=== PATIENT | female | born 1950 | race Caucasian/White ===

== ENCOUNTER → 2016-04-10 | Outpatient (CLI) | payer BC ==
--- NOTE | 2016-04-10 21:59 | DI ---
THORACIC SPINE SERIES, 04/10/2016 2:07 PM: Clinical History: History of compression fracture of the vertebral column. Osteoporosis by bone continuous miner al density scan. Previous Exam: None at this facility. Comparison is made with a chest x-ray from 05/31/2006. 2 views are submitted. There is diffuse osteoporosis. There is a chronic compression fracture of T7 t hat is unchanged from the previous exam. No new fractures are identified. The patient has developed m ild dextroscoliosis of the upper thoracic spine. The pedicles are normal. No paravertebral widening i s present. A lateral view of the cervical spine is also submitted. There is reversal of the usual cervical lordo sis. The vertebral bodies are of normal height and size. Chronic severe disc space narrowing is prese nt at C4-5 through C6-7. There is anterior subluxation of C4 on C5 by approximately 2 mm. Readin. Chronic compression fracture of T7. No new compression fractures are identified. 2. Severe osteoporosis. 3. Interval development of mild dextroscoliosis of the upper thoracic spine. 4. Chronic severe disc space narrowing is present from C4-5 to C6-7 with anterior subluxation of C4 on C5 by 2 mm and reversal of the usual cervical lordosis.
--- NOTE | 2016-04-10 22:11 | DI ---
LUMBAR SPINE SERIES, 04/10/2016 2:07 PM: Clinical History: History of compression fracture of the vertebral column. Previous Exam: None at this facility. Upright AP and lateral views are submitted. The vertebral bodies are of normal height and size. Sever e disc space narrowing is present at L2-3 with moderate disc space narrowing from L3-4 through L5-S1. There is a grade 1 spondylolisthesis at L4-5. The pedicles are normal. Degenerative arthritic change s are present in the left L4-5 apophyseal joint. Both SI joints are normal. There is osteoporosis. Be nign cystic changes are present in the right femoral neck. Readin. Disc space narrowing is present from L2-3 through L5-S1 with a grade 1 spondylolisthesis at L4-5. Degenerative arthritic changes are present in the left L4-5 apophyseal joint. 2. Diffuse osteoporosis. 3. Compensatory levoscoliosis of the mid lumbar spine.
== END ==
LOC: RAD 12:35
PROVIDERS: ATTEND Internal Medicine
DX: M48.06 Spinal stenosis, lumbar region (principal); M43.16 Spondylolisthesis, lumbar region; M48.54XG Collapsed vertebra, not elsewhere classified, thoracic region, subsequent encounter for fracture with delayed healing
CPT/HCPCS: 72070; 72100

== ENCOUNTER → 2016-04-10 | Outpatient (CLI) | payer BC | LOC: LAB 12:35 | PROVIDERS: ATTEND Internal Medicine | DX: E03.9 Hypothyroidism, unspecified (principal); F31.9 Bipolar disorder, unspecified | CPT/HCPCS: 36415; 80178; 84439; 84481 ==

== ENCOUNTER → 2016-09-18 | Outpatient (CLI) | payer BC ==
[2016-09-18 08:35] LABS: BASOPHILS # (AUTO) 0.07 10*3/UL; BASOPHILS % (AUTO) 2.1 % (0-1); EOSINOPHILS # (AUTO) 0.23 10*3/UL; HEMATOCRIT 36.4 % (37.0-47.0); HEMOGLOBIN 11.3 g/dL (12.0-16.0); LYMPHOCYTES # (AUTO) 1.01 10*3/uL; MEAN CORPUSCULAR HEMOGLOBIN 29.4 PG (27-31); MEAN CORPUSCULAR VOLUME 94.5 FL (81-99); MEAN PLATELET VOLUME 8.8 FL (7.4-12.2); MONOCYTES # (AUTO) 0.38 10*3/UL (0.3-0.8); MONOCYTES % (AUTO) 11.6 % (5-15); NEUTROPHILS # (AUTO) 1.58 10*3/UL; NEUTROPHILS % (AUTO) 48.4 % (50-80); RED BLOOD COUNT 3.85 10^6/uL (4.20-5.40)
[2016-09-18 08:39] LABS: PLATELET MORPHOLOGY COMMENT NORMAL MORPHOLOGY (NORM); RBC MORPHOLOGY COMMENT NORMAL MORPHOLOGY (NORM); WBC MORPHOLOGY COMMENT NORMAL MORPHOLOGY (NORM)
[2016-09-18 08:47] LABS: BUN/CREATININE RATIO 10.9 (6-20); CALCIUM 9.4 mg/dL (8.7-10.7); CHOL/HDL RATIO 4.18 RATIO (0-4.0); LDL CHOLESTEROL,CALCULATED 125.2 mg/dL; SERUM ALBUMIN 4.1 g/dL (3.5-4.8)
--- NOTE | 2016-09-18 20:33 | DI ---
CT SCAN OF THE TEMPORAL BONES WITHOUT CONTRAST, 09/18/2016 11:04 AM : Clinical History: Deficit in the right ear. Previous Exam: None at this facility. High resolution axial low dose thin slices are obtained through the temporal bones without IV contras t. Sagittal and coronal reformatted images are generated. The left temporal bone and the middle and inner ear structures as well as the external auditory canal are all normal and are used as a control. On the right side, there is complete occlusion of the exte rnal auditory canal presumably by cerumen. There is no air visualized in the canal all the way to the tympanic membrane. There is no destructive change of the bony canal. There is no evidence of a margot steatoma or of fluid in the mastoid air cells to indicate mastoiditis. READIN. There is complete occlusion of the right external auditory canal with no evidence of air separati ng the tympanic membrane from the soft tissue material which presumably represents cerumen. No erosiv e changes of the bony external auditory canal are seen. The middle and inner ear structures and the m astoid air cells are normal. 2. The left ear is normal and is used as a control.
--- NOTE | 2016-09-18 20:42 | DI ---
MRI BRAIN SCAN WITHOUT AND WITH IV CONTRAST WITH EMPHASIS ON THE INTERNAL AUDITORY CANALS, 09/18/2016 10:11 AM: Clinical History: Right ear deafness. Previous Exam: None at this facility. Sequences: Sagittal non contrast T1 weighted slices; axial T2 weighted and FLAIR slices; axial T2 3D Steady State Free Precession thin slices. Pre and post contrast T1 weighted sagittal and axial thin s lices through the internal auditory canals. Diffusion weighted imaging with ADC mapping. Contrast Dose: 20 mL of ProHance (279.3 mg/mL) The 4th, 3rd, and lateral ventricles are of normal size, shape, position, and contour. There are no f ocal areas of abnormally increased or decreased signal intensity. Pre and post contrast thin slices t hrough the internal auditory canals show a normal appearance of the 7th and 8th cranial nerves. There is no cerebellopontine angle mass. No abnormal enhancing lesion is present. The cerebellar tonsils a re at the level of the foramen magnum. There is mild cerebral atrophy appropriate for the patient's a ge. Diffusion weighted imaging with ADC mapping is normal. There are no extracerebral mantels or shif t of the midline structures. The paranasal sinuses are normal. There is an intermediate signal intens ity confined to the right external auditory canal. There is no evidence of enhancement of this interm ediate signal intensity material and it terminates on the medial aspect corresponding to the tympanic membrane. There is no hypointense area within this material to suggest presence of gas or air. This would be consistent with a completely impacted external auditory canal by cerumen. Cerumen would be a butting the tympanic membrane and certainly could account for severe if not complete conductive heari ng loss. Readin. There is soft tissue material that does not show any enhancement and it completely fills the righ t external auditory canal from the orifice to the tympanic membrane. This can account for severe if n ot complete conductive hearing loss in the right ear. 2. There is no evidence of a cerebellopontine angle mass or evidence of a tumor involving the sevent h or eighth nerves on either side. 3. The pre-and postcontrast MRI brain scans are normal. There is age-appropriate cerebral atrophy. 4. Diffusion weighted imaging with ADC mapping is normal.
== END ==
LOC: MRI 08:11
PROVIDERS: ATTEND Internal Medicine
DX: H91.91 Unspecified hearing loss, right ear (principal); M06.9 Rheumatoid arthritis, unspecified; E03.9 Hypothyroidism, unspecified; F31.9 Bipolar disorder, unspecified; I65.8 Occlusion and stenosis of other precerebral arteries
CPT/HCPCS: 36415; 70480; 70543; 80053; 80061; 80178; 84443; 85025; 85652

== ENCOUNTER 2017-06-05 06:03 | Inpatient (IN) ==
[2017-06-04 12:28] LABS: BASOPHILS # (AUTO) 0.01 10*3/UL; BASOPHILS % (AUTO) 0.3 % (0-1); EOSINOPHILS # (AUTO) 0.23 10*3/UL; Hematocrit [HCT] 34.8 % (37.0-47.0); LYMPHOCYTES # (AUTO) 0.79 10*3/uL; MEAN CORPUSCULAR HEMOGLOBIN 28.8 PG (27-31); MEAN CORPUSCULAR HGB CONC 31.6 g/dL (33-37); MEAN CORPUSCULAR VOLUME 91.1 FL (81-99); MEAN PLATELET VOLUME 9.7 FL (7.4-12.2); MONOCYTES # (AUTO) 0.38 10*3/UL (0.3-0.8); MONOCYTES % (AUTO) 13.1 % (5-15); NEUTROPHILS # (AUTO) 1.48 10*3/UL; NEUTROPHILS % (AUTO) 51.3 % (50-80); RED BLOOD COUNT 3.82 10^6/uL (4.20-5.40)
[2017-06-04 12:29] LABS: PLATELET MORPHOLOGY COMMENT NORMAL MORPHOLOGY (NORM); RBC MORPHOLOGY COMMENT NORMAL MORPHOLOGY (NORM); WBC MORPHOLOGY COMMENT NORMAL MORPHOLOGY (NORM)
[~2017-06-05 06:03] MED LIST: BUPivacaine Liposome/PF (Exparel) Inj 20ml vial INFIL ONE; Clindamycin 900mg (Premix) 900 MG/50 ML BAG IV ONE; Ketorolac Inj 30 MG, Morphine Inj 5 MG, BUPivacaine Inj 0.25% PF 150 MG SPLASH ONE; LIDOCAINE W/ SODIUM BICARB 0.5 ML SYR ONE; LIDOCAINE W/ SODIUM BICARB 0.5 ML SYR SUBD ONE; Lactated Ringers 1,000 ML PRIMARY IV ONE; Lactated Ringers 1,000 ML PRIMARY IV SCH; Tranexamic Acid 1,000 MG in Sodium Chloride 0.9% 100 ML IV SCH
[2017-06-05] MEDS ORDERED: Sodium Chloride 0.9% 250 ML IV ONE (06:44)
[2017-06-05] MEDS ORDERED: Sodium Chloride 0.9% 0 ML ONE (06:45)
[2017-06-05] MEDS ORDERED: Sodium Chloride 0.9% vial 60 ML ONE (06:56)
[2017-06-05] MEDS ORDERED: BUPivacaine Liposome/PF (Exparel) Inj 20ml vial INFIL ONE (06:56)
[2017-06-05] MEDS ORDERED: BACITRACIN 50,000 UNIT VIAL IRRIG ONE (06:56)
[2017-06-05] MEDS ORDERED: PROPOFOL 10 MG/1 ML (200 MG/20 ML) VIAL IV ONE (07:00)
[2017-06-05] MEDS ORDERED: MIDAZOLAM 5 MG/1 ML ONE ×2 (07:00→07:27)
[2017-06-05] MEDS ORDERED: fentaNYL Inj 250 MCG/5 ML VIAL ONE ×2 (07:00→08:36)
[2017-06-05] MEDS ORDERED: ROCURONIUM 10 MG/1 ML - 5 ML VIAL IVP ONE (07:01)
[2017-06-05] MEDS ORDERED: Sodium Chloride 0.9% vial 10 ML ONE (07:02)
[2017-06-05] MEDS ORDERED: TRANEXAMIC ACID 1,000 MG / 10 ML VIAL ONE (07:08)
[2017-06-05] MEDS ORDERED: EPINEPHrine Inj (1:1,000) 1 mg/ml amp ONE (07:26)
[2017-06-05] MEDS ORDERED: BUPivacaine Inj 0.25% PF - 10ml vial ONE (07:27)
[2017-06-05] MEDS ORDERED: fentaNYL Inj 100 MCG/2 ML VIAL ONE (07:27)
[2017-06-05] MEDS ORDERED: DEXAMETHASONE PF 10 MG/1 ML VIAL ONE ×2 (07:27→08:30)
[2017-06-05] MEDS ORDERED: LIDOCAINE W/ SODIUM BICARB 0.5 ML SYR ONE (07:43)
[2017-06-05] MEDS ORDERED: LIDOCAINE MPF 2% - 5 ML (20 MG/1 ML) ONE (08:13)
[2017-06-05] MEDS ORDERED: ESMOLOL HCL 100 MG/10 ML VIAL ONE (08:14)
--- NOTE | 2017-06-05 09:19 | CRNA.PROGR ---
Anesthesia Time - - Start date: 06/05/17 End date: 06/05/17 - Procedure/Recovery Time Anesthesia : Time In: 08:07 Anesthesia : Time Out: 11:47 Anesthesia : Total Time: 220 - Block Time PreOp Block : Time In: 07:39 PreOp Block : Time Out: 07:55 PreOp Block : Total Time: 16 - Total Anesthesia Time Total Anesthesia Time (minutes): 236 - Other Weight: 99.337 kg Height: 5 ft 10 in Body Mass Index (BMI): 31.4 Physical Status: P3 (Gerd, Bipolar,) Anesthesia Type: General Anesthesia : ET
--- NOTE | 2017-06-05 09:21 | CRNA.PROCE ---
Nerve Block Documentation - - Safety Measures: Time Out Taken, Site Verified - - Type of Nerve Block Used: Right Adductor Canal Nerve Block Position for Nerve Block: Supine Moniters Used During Block: EKG, SPO2, NIBP Oxygen Supplemented: Yes Sedation Used - Enter Amount in Comment Field [ANES.SEDAT]: Midazolam (mg): Yes (3), Fentanyl (mcg): Yes (100) Skin Prep Used: ChloroPrep (Twice) Technique: Ultrasound Nerve Block Needle Used: EchoBright 100 mm Local Anesthetic - Enter Amt in Comment Field [ANES.LOCNB]: 0.25 % Bupivicaine with Epinephrine 1:200,000 (mL): Yes (30 ml in 1.5 ml increments) Additives to Nerve Blocks: Dexamethasone (mg): Yes (10) Anesthesia Time - Block Time PreOp Block : Time In: 07:39 PreOp Block : Time Out: 07:55 - Other Weight: 99.337 kg Height: 5 ft 10 in Body Mass Index (BMI): 31.4
[2017-06-05] MEDS ORDERED: PHENYLEPHRINE 10,000 MCG/1 ML VIAL ONE (10:24)
[2017-06-05] MEDS ORDERED: Lactated Ringers 1,000 ML PRIMARY IV ONE ×2 (10:28→10:35)
[2017-06-05] MEDS ORDERED: ONDANSETRON 4 MG/2 ML VIAL ONE (10:34)
[2017-06-05] MEDS ORDERED: ATROPINE SULFATE 0.4 MG/1 ML VIAL IVP PRN (10:47)
[2017-06-05] MEDS ORDERED: ONDANSETRON 4 MG/2 ML VIAL IVP PRN ×2 (10:47→12:39)
[2017-06-05] MEDS ORDERED: NORMAL SALINE 10 ML SYRINGE FLUSH IVP PRN ×2 (10:47→12:39)
[2017-06-05] MEDS ORDERED: fentaNYL Inj 100 MCG/2 ML VIAL IVP PRN (10:47)
[2017-06-05] MEDS ORDERED: LIDOCAINE W/ SODIUM BICARB 0.5 ML SYR SUBD PRN (10:47)
[2017-06-05] MEDS ORDERED: Ondansetron ODT Tab 8 MG TAB PO PRN (10:47)
[2017-06-05] MEDS ORDERED: HYDROmorphone 2 MG/1 ML IVP PRN (10:47)
[2017-06-05] MEDS ORDERED: Lactated Ringers 1,000 ML PRIMARY IV SCH (11:00)
[2017-06-05] MEDS ORDERED: HYDROmorphone 2 MG/1 ML ONE (12:26)
[2017-06-05] MEDS ORDERED: MAG HYDROX/AL HYDROX/SIMETH 30 ML SUSP PO PRN (12:39)
[2017-06-05] MEDS ORDERED: CALCIUM CARBONATE 500 MG (TUMS) CHEWABLE TABLET PO PRN (12:39)
[2017-06-05] MEDS ORDERED: Prochlorperazine Tab 10 MG TAB PO PRN (12:39)
[2017-06-05] MEDS ORDERED: BISACODYL 10 MG SUPPOSITORY RECTAL PRN (12:39)
[2017-06-05] MEDS ORDERED: ACETAMINOPHEN 325 MG TABLET PO PRN (12:39)
[2017-06-05] MEDS ORDERED: Non-Formulary Drug (Budesonide/Formoterol Fumarate [Symbicort 160-4.5 Mcg Inhaler] 2 INH) INH PRN (12:39)
--- NOTE | 2017-06-05 13:16 | CRNA.PROGR ---
Anesthesia Recovery Phase I - Post Anesthesia Evaluation Patient's Condition on Arrival in Phase I: Stable Patient's Condition on Arrival in Phase II: Stable Pain Level: 3 (No nausea, Pain at a reasonable level for her.)
--- NOTE | 2017-06-05 13:17 | CRNA.PROGR ---
Post Anesthesia Phase II - Post Anesthesia Phase II Patient Stable and Discharged To: Phase II Care Assumed By Surgeon: Cali Das MD Temperature: 98.6 F Pulse Rate: 98 Respiratory Rate: 17 Blood Pressure: 95/65 Pulse Ox: 93 Total Jose Francisco Score at Discharge: 9 Post Anesthesia Discharge Criteria Met: Yes
[2017-06-05] MEDS ORDERED: Acetaminophen 1000mg Inj 1,000 MG/100 ML VIAL IV PRN (13:34)
--- NOTE | 2017-06-05 13:34 | CONSULT ---
Consult Note - Consult Reason for Consult: PostOp Consulation : Ortho Requesting Physician: shayla Primary Care Provider: Beau Walker MD - History of Present Illness History of Present Illness: Is a very nice 67-year-old female who underwent right total knee replacement by Dr. Das hospitalist service was consult did for pain management. 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 Das also called the hematology in [place] yesterday and recommended to go ahead with the surgery of course there is a higher chance of infection, hypothyroidism Surgical History: Bone marrow many years ago as per Dr. Boyle her Tobacco Use: Never Smoker In the Past 12 Months, Have Used or Abuse Any of the Following Substance: None Review of Systems - Review of Systems All Systems: Reviewed & No Additional Complaints Except as Stated - Respiratory Respiratory: DENIES: Negative System Review, Cough, Sputum, Dyspnea At Rest, Dyspnea with Exertion, Pleuritic Pain, Hemoptysis, Wheezing, Other, See HPI - Cardiovascular Cardiovascular: DENIES: Negative System Review, Chest Pain, Edema, Syncope, Palpitations, Orthopnea, Paroxysmal Nocturnal Dyspnea, Other, See HPI - Gastrointestinal Gastrointestinal / Abdominal: DENIES: Negative System Review, Nausea, Vomiting, Diarrhea, Constipation, Abdominal Pain, Bloody Stool, Poor Appetite, Heartburn, Regurgitation, Bloating, Lactose Intolerance, Melena, Bright Red Blood per Rectum, Other, See HPI Medication / Allergies Home Medications: Home Medications 3 Medication Instructions Recorded Confirmed Type lurasidone 60 mg tablet 60 mg PO QDAY 01/22/17 06/05/17 History budesonide-formoterol HFA 160 2 inh INH Q12H PRN g 05/07/17 06/05/17 History mcg-4.5 mcg/actuation aerosol inhaler buprenorphine 15 mcg/hour weekly 1 patch TRANSDERM QWEEK 05/07/17 06/05/17 History transdermal patch divalproex ER 250 mg 250 mg PO BID tab 05/07/17 06/05/17 History tablet,extended release 24 hr duloxetine 60 mg capsule,delayed 60 mg PO QDAY cap 05/07/17 06/05/17 History release liothyronine 50 mcg tablet 50 mcg PO ONCE #90 tab 05/07/17 06/05/17 Rx lithium carbonate 300 mg capsule 600 mg PO QDAY cap 05/07/17 06/05/17 History lorazepam 0.5 mg tablet 0.5 mg PO TID PRN tab 05/07/17 06/05/17 History losartan 50 mg tablet 50 mg PO QDAY 05/07/17 06/05/17 History pantoprazole 40 mg tablet,delayed 40 mg PO BID #180 tab 05/07/17 06/05/17 Rx release zolpidem 10 mg tablet 10 mg PO QHS 05/07/17 06/05/17 History celecoxib 100 mg capsule 100 mg PO BID #180 cap 05/16/17 06/05/17 Rx apremilast 30 mg tablet 30 mg PO QHS tab 06/04/17 06/05/17 History Allergies/Adverse Reactions: Allergies 3 Allergy/AdvReac Type Severity Reaction Status Date / Time Penicillins Allergy Severe Anaphylaxis Verified 06/05/17 06:49 Sulfa (Sulfonamide Allergy Severe HIVES Verified 06/05/17 06:49 Antibiotics) bee stings Allergy SWELLING Uncoded 06/05/17 06:49 Exam - Vitals Vital Signs: Vital Signs Temperature 98.6 F Pulse Rate 98 Respiratory Rate 17 Blood Pressure 95/65 Pulse Ox 93 Oxygen Flow Rate 4L NC Height 5 ft 10 in Weight 219 lb - General General Appearance: No Acute Distress, Cooperative - Respiratory Respiratory Exam: POSITIVE: Clear to Auscultation - Bilaterally, Breathing Non Labored, Normal To Percussion, Normal to Percussion and Palpation - Cardiovascular Cardiovascular Exam: POSITIVE: RRR, No Murmur, No Clicks, No Gallops, No Rubs, PMI Non-Displaced - GI/Abdominal GI/Abdominal Exam: POSITIVE: Normal Bowel Sounds, Non Tender, Non Distended, Soft, No Masses, No Hepatomegaly, No Splenomegaly, No Organomegaly - Extremities Extremities Exam: POSITIVE: No Clubbing Present, No Edema Present - Neurological Neurological Exam: POSITIVE: Alert, No Facial Droop Results - Labs CBC and BMP: 06/04/17 10:02 Assessment and Plan - Patient Problems (1) Status post total knee replacement, right Current Visit: Yes Status: Acute Comment: Defer her PT OT orders anticoagulation to Dr. Das Code(s): Z96.651 - Presence of right artificial knee joint (2) Arthritis of right knee Current Visit: No Status: Acute Code(s): M17.11 - Unilateral primary osteoarthritis, right knee (3) Pain Current Visit: Yes Status: Acute Comment: Patient is on buprenorphine patch her psychiatrist has held this until after the surgery we will try IV tall for pain if this does not work we are still going to be able to use narcotics at the moment I discussed this with her Dr. Boyle who talked to her psychiatrist Code(s): R52 - Pain, unspecified
--- NOTE | 2017-06-05 13:42 | ORTHO.OP ---
- - -: See Dictated Operative Report Procedure Codes - Lower Extremity/Knee Procedures Primary Lower Extremity Procedure Code: 74413 : TKA (Nicolette Walker assisted)
--- NOTE | 2017-06-05 13:43 | DI ---
RIGHT KNEE, 06/05/2017 7:54 AM: Clinical History: Status post total knee replacement. Osteoarthritis. Previous Exam: 01/22/2017. AP and lateral views are submitted. The patient is status post total right knee replacement. The pros thetic joint articulates normally. Reading: Status post total right knee replacement. The prosthetic joint articulates normally.
[2017-06-05] MEDS: Lactated Ringers 1,000 ML PRIMARY IV SCH (13:53)
[2017-06-05] MEDS: HYDROmorphone 2 MG/1 ML IVP PRN (14:16)
[2017-06-05] MEDS: Clindamycin 900mg (Premix) 900 MG/50 ML BAG IV SCH ×2 (14:25→21:03)
[2017-06-05] MEDS ORDERED: PANTOPRAZOLE 40 MG TABLET PO SCH (16:30)
--- NOTE | 2017-06-05 17:13 | ORTHO.PROG ---
Last Taken Vital Signs: Vital Signs - Last Taken Temperature 98.3 F 06/05/17 16:34 Pulse Rate 85 06/05/17 16:34 Respiratory Rate 16 06/05/17 16:34 Blood Pressure 100/57 06/05/17 16:34 Pulse Ox 93 06/05/17 16:34 Subjective: Patient's sleeping about after awakening she notes she she's having some pain in the right knee she notes it's a fairly significant. Objective: Examination shows she has good motion of her toes her dressing is in place motor and sensory exam is nonfocal Intake and Output - 8hrs 06/04/17 06/05/17 06/05/17 06/05/17 21:59 05:59 13:59 21:59 Intake: IV 2600 / 2600 200 / 200 Intake Oral Amount 300 / 300 Output: Output, Urinary Catheter Amount 35 / 35 200 / 200 Output, Urine Amount 150 / 150 Output, Post Indwelling 10 / 10 Catheter Insertion Output, Estimated Blood Loss 200 / 200 Amount Other: Number of Voids 1 Weight 99.337 kg Vital Signs (24 hrs) Temp Pulse Pulse Resp BP BP Pulse Ox 06/05/17 16:34 98.3 F 85 16 100/57 93 06/05/17 15:43 96 06/05/17 14:30 98.1 F 93 16 122/62 95 06/05/17 14:00 97.3 F 103 H 17 116/65 95 06/05/17 13:30 97.4 F 88 16 113/59 96 06/05/17 13:17 98.6 F 98 17 95/65 93 06/05/17 13:15 98 F 88 16 106/64 96 06/05/17 13:00 98 F 93 16 114/70 96 06/05/17 12:40 98.1 F 99 93 16 114/70 122/62 95 06/05/17 12:35 98 15 111/68 94 06/05/17 12:30 100 14 109/65 93 06/05/17 12:25 96 15 115/65 93 06/05/17 12:20 98 17 95/65 93 06/05/17 12:15 96 16 115/60 92 06/05/17 12:10 96 15 109/62 93 06/05/17 12:05 96 15 104/67 93 06/05/17 12:02 99 23 93 06/05/17 12:00 97 15 99/61 95 06/05/17 11:58 85 14 94 06/05/17 11:56 86 14 99/61 94 06/05/17 11:50 85 14 97/57 93 06/05/17 11:45 90 13 108/56 92 06/05/17 11:40 98.6 F 100 13 116/51 92 06/05/17 08:18 98.6 F 85 18 134/78 92 Assessment: Right total knee replacement doing well Plan: Patient does stated with therapy she seemed to do well with this by nurses history. We will have her proceed with DVT prophylaxis starting tomorrow also with pneumatic sequentials begin physical therapy and occupational therapy. Pain control. Ice and elevation
[2017-06-05] MEDS: oxyCODONE/APAP 7.5/325 Tab 1 TAB TAB PO PRN (20:33)
[2017-06-05] MEDS ORDERED: DIVALPROEX SODIUM 250 MG PO SCH (21:00)
[2017-06-05] MEDS: DOCUSATE 100 MG CAPSULE PO SCH (21:02)
[2017-06-05] MEDS: PANTOPRAZOLE 40 MG TABLET PO SCH (21:03)
[2017-06-05] MEDS: ZOLPIDEM 10 MG TABLET PO SCH (21:03)
[2017-06-05] MEDS ORDERED: LITHIUM CARBONATE 300 MG CAPSULE PO ONE (21:59)
[2017-06-06] MEDS: Lactated Ringers 1,000 ML PRIMARY IV SCH ×2 (00:39→10:46)
[2017-06-06] MEDS: Clindamycin 900mg (Premix) 900 MG/50 ML BAG IV SCH (02:15)
[2017-06-06] MEDS: HYDROmorphone 2 MG/1 ML IVP PRN ×4 (04:27→21:05)
[2017-06-06] MEDS: LIOTHYRONINE SODIUM 25 MCG PO SCH (04:55)
[2017-06-06 05:12] LABS: Hematocrit [HCT] 24.8 % (37.0-47.0); Hemoglobin [HGB] 7.5 g/dL (12.0-16.0); MEAN CORPUSCULAR HEMOGLOBIN 28.1 PG (27-31); MEAN CORPUSCULAR HGB CONC 30.2 g/dL (33-37); MEAN CORPUSCULAR VOLUME 92.9 FL (81-99); MEAN PLATELET VOLUME 9.7 FL (7.4-12.2); RED BLOOD COUNT 2.67 10^6/uL (4.20-5.40)
[2017-06-06 05:20] LABS: BLOOD UREA NITROGEN 12 mg/dL (7-22); BUN/CREATININE RATIO 13.33 (6-20)
[2017-06-06] MEDS ORDERED: LIOTHYRONINE SODIUM 50 MCG PO SCH (05:30)
[2017-06-06] MEDS ORDERED: LIOTHYRONINE SODIUM 25 MCG PO SCH (05:30)
[2017-06-06] MEDS: oxyCODONE/APAP 7.5/325 Tab 1 TAB TAB PO PRN ×3 (08:30→20:00)
[2017-06-06] MEDS: LOSARTAN 50 MG TABLET PO SCH (08:31)
[2017-06-06] MEDS: DOCUSATE 100 MG CAPSULE PO SCH ×2 (08:31→20:00)
[2017-06-06] MEDS: DULOXETINE 60 MG CAPSULE PO SCH (08:31)
[2017-06-06] MEDS: LITHIUM CARBONATE 300 MG CAPSULE PO SCH (08:31)
[2017-06-06] MEDS: ENOXAPARIN SODIUM 30 MG/0.3 ML SYRINGE SUBCUT SCH ×2 (08:31→19:59)
[2017-06-06] MEDS: PANTOPRAZOLE 40 MG TABLET PO SCH ×2 (08:31→20:00)
--- NOTE | 2017-06-06 10:34 | CRNA.PROGR ---
Anesthesia Note - Progress Notes Anesthesia Progress Note: Sitting up in bed visiting with nurse. Discussed her anesthetic course and she has no questions or concerns regarding her anesthetic care. Laboratory Results 06/06/17 06/06/17 Range/Units 04:05 04:05 WBC 6.32 (4.8-10.8) 10^3/uL RBC 2.67 L (4.20-5.40) 10^6/uL Hgb 7.5 L (12.0-16.0) g/dL Hct 24.8 L (37.0-47.0) % MCV 92.9 (81-99) FL MCH 28.1 (27-31) PG MCHC 30.2 L (33-37) g/dL RDW Std Deviation 43.8 (39-50) fL RDW Coeff of Tommie 13.5 (11.5-14.5) % Plt Count 165 (140-350) 10*3/uL MPV 9.7 (7.4-12.2) FL Sodium 135 D (135-145) meq/L Potassium 4.7 (3.8-5.2) meq/L Chloride 104 (98-112) meq/L Carbon Dioxide 21 L (23-33) meq/L Anion Gap 10 (5-20) BUN 12 (7-22) mg/dL Creatinine 0.9 (0.50-1.20) mg/dL Estimated GFR > 60 (>60 ml/min/1.73m(2)) BUN/Creatinine Ratio 13.33 (6-20) Glucose 137 H (78-110) mg/dL Calculated Osmolality 281.0 (267-292) mOsm/kg Calcium 8.9 (8.7-10.7) mg/dL Vital Signs (24 hrs) Temp Pulse Pulse Resp BP BP Pulse Ox 06/06/17 08:28 98.7 F 74 16 131/75 96 06/06/17 07:00 16 06/06/17 04:57 94 06/06/17 04:25 98.8 F 85 20 97 06/06/17 00:22 99.3 F 98 20 88/54 93 06/05/17 20:48 98.4 F 95 20 120/70 95 06/05/17 19:00 95 06/05/17 16:34 98.3 F 85 16 100/57 93 03/27/18 15:43 96 03/27/18 14:30 98.1 F 93 16 122/62 95 03/27/18 14:00 97.3 F 103 H 17 116/65 95 03/27/18 13:30 97.4 F 88 16 113/59 96 03/27/18 13:17 98.6 F 98 17 95/65 93 03/27/18 13:15 98 F 88 16 106/64 96 03/27/18 13:00 98 F 93 16 114/70 96 03/27/18 12:40 98.1 F 99 93 16 114/70 122/62 95 03/27/18 12:35 98 15 111/68 94 03/27/18 12:30 100 14 109/65 93 03/27/18 12:25 96 15 115/65 93 03/27/18 12:20 98 17 95/65 93 03/27/18 12:15 96 16 115/60 92 03/27/18 12:10 96 15 109/62 93 03/27/18 12:05 96 15 104/67 93 03/27/18 12:02 99 23 93 03/27/18 12:00 97 15 99/61 95 03/27/18 11:58 85 14 94 03/27/18 11:56 86 14 99/61 94 03/27/18 11:50 85 14 97/57 93 03/27/18 11:45 90 13 108/56 92 03/27/18 11:40 98.6 F 100 13 116/51 92
--- NOTE | 2017-06-06 11:00 | PTI REPORT ---
Thank you for the referral of Claribel Boyle. She was seen on 06/05/17 for an inpatient evaluation status post right total knee arthroplasty. SUBJECTIVE: The patient is a 67-year-old female who earlier today underwent a right total knee arthroplasty with an adductor block. The patient does live in a condo with her . There are stairs to enter the home, but once she is in the home, she is able to remain on one level. She does have a walk-in shower. She does not have any assistive devices in the home. PAST MEDICAL HISTORY: Past medical history can be found in the patient's medical record. OBJECTIVE FINDINGS: General observations: The patient was very groggy but she was able to answer questions appropriately and was oriented to time, person, and place. Pain: At this time the patient reports no pain in the right knee. Bed mobility: The patient was able to come to sitting position with use of the bed rail independently. She was able to return to supine position from standing to sitting and then supine independently. Balance: Sitting balance is good. Standing balance is fair. Transfers: The patient was able to come to standing position with use of the bed railing and walker for support. Ambulation: The patient does bear partial weight on the right lower extremity but was unable to take a step. ASSESSMENT: The patient is very groggy. Her prognosis is good for return to pre functional position. Short-Term Goals: To be met by discharge from inpatient: Patient will demonstrate independent transfers in and out of bed, on and off the toilet, and in and out of a chair. Patient will ambulate 100 feet with walker. Patient will demonstrate range of motion in the right knee of 0 to 90 degrees. Patient will demonstrate strength in the right lower extremity of 3/5. Long-Term Goals: To be met following discharge from inpatient: Patient will return home and will begin either outpatient or home health therapy , pending her progress in her hospital stay. TREATMENT PLAN: Patient will be seen B.I.D during the week and one time per day over the weekend as an inpatient for lower extremity strengthening, range of motion exercises, transfer training, and gait training with a walker. Plan of care was reviewed with the patient and agreed upon. INITIAL TREATMENT: Treatment today consisted of the initial evaluation activities. Following the evaluation the patient was positioned in bed with right lower extremity elevated with the knee and ankle level and ice pack to the right knee. Note done by: Joan Banks, PT [facility]
--- NOTE | 2017-06-06 15:23 | PDOC(PROG) ---
Date and Time of Service: 06/06/2017 3:24 PM Interval History: Subjective Patient continued to complain from pain in her right knee but the pain medication is helping. She has a history of hypertension, hypothyroidism, bipolar disorder and she is on medication for it. She also has history of chronic pain and she is on Butrans patch, this was a stopped before the surgery. She is on IV and oral pain medications now. She said she take her Depakote as needed last time she took it was 5 days ago. Objective : Data - Labs CBC and BMP: 06/06/17 04:05 06/06/17 04:05 Objective : Exam - General General Appearance: No Acute Distress, Cooperative, Obese - Head Head Exam: Normal Inspection, Atraumatic - Eye Eye Exam: Normal Appearance - ENT ENT Exam: Normal Exam - Neck Neck Exam: Normal Inspection - Respiratory Respiratory Exam: Clear to Auscultation - Bilaterally - Cardiovascular Cardiovascular Exam: RRR - GI/Abdominal GI/Abdominal Exam: Normal Bowel Sounds, Non Tender, Non Distended, Soft, No Organomegaly - Rectal Rectal Exam: Deferred - External Exam: Deferred - Extremities Additional Extremities Exam Details: Dressing applied to the right knee. There is no significant edema. - Back Back Exam: Normal Inspection - Neurological Neurological Exam: Alert, Oriented x 3, CN II-XII Intact, Speech Intact / Clear , Moves All Extremities Equally - Psychiatric Psychiatric Exam: Normal Affect Assessment and Plan - Patient Problems (1) Arthritis of right knee Current Visit: No Status: Acute Comment: She is status post surgery, PT and OT consulted for her. Pain medication written continue. For DVT prophylaxis she is started on Lovenox. Code(s): M17.11 - Unilateral primary osteoarthritis, right knee (2) Status post total knee replacement, right Current Visit: Yes Status: Acute Comment: Same as above continue PT and OT. Same pain medications. Code(s): Z96.651 - Presence of right artificial knee joint (3) Hypothyroidism Current Visit: Yes Status: Acute Comment: Same med Code(s): E03.9 - Hypothyroidism, unspecified (4) Hypertension Current Visit: Yes Status: Acute Comment: Same medications Code(s): I10 - Essential (primary) hypertension (5) Postoperative anemia due to acute blood loss Current Visit: Yes Status: Acute Comment: She is anemic, with repeat her count tomorrow. She is asymptomatic is no chest pain, no shortness of breath no dizziness. If the level is still low tomorrow consider giving blood transfusions. Code(s): D62 - Acute posthemorrhagic anemia (6) Bipolar disorder Current Visit: Yes Status: Acute Comment: Continue previous medications including Latuda, lithium and Cymbalta. Code(s): F31.9 - Bipolar disorder, unspecified
--- NOTE | 2017-06-06 17:20 | PT.PROG ---
Progress Note Progress Note: Patient stated she was tired after working with OT and didn't feel up to more therapy however agreed to do therapy this afternoon.
--- NOTE | 2017-06-06 17:25 | PT.PROG ---
Progress Note Progress Note: S. Patient stated that her knee is sore and she would like to walk to see if it will feel better. O. Patient transferred from sitting to standing then ambulated 30 feet to the armstrong and back to bed where she transferred into bed and was left with call light and alarm. A. Patient tolerated ambulation well, she required min assist with ambulation and sit to stand transfer. she required min assist with sitting to supine transfer as well, she would continue to benefit from skilled therapy to increase strength and mobility at this time. P. Continue POC.
--- NOTE | 2017-06-06 18:10 | ORTHO.PROG ---
Last Taken Vital Signs: Vital Signs - Last Taken Temperature 98.1 F 06/06/17 17:00 Pulse Rate 90 06/06/17 17:00 Respiratory Rate 18 06/06/17 17:00 Blood Pressure 143/75 06/06/17 17:00 Pulse Ox 93 06/06/17 17:00 Subjective: Patient with a fair amount of pain but overall doing well Objective: Patient with good motion of the foot and ankle. She has normal sensory exam. Dressing is applied place and dry. Laboratory Results 06/06/17 06/06/17 Range/Units 04:05 04:05 WBC 6.32 (4.8-10.8) 10^3/uL RBC 2.67 L (4.20-5.40) 10^6/uL Hgb 7.5 L (12.0-16.0) g/dL Hct 24.8 L (37.0-47.0) % MCV 92.9 (81-99) FL MCH 28.1 (27-31) PG MCHC 30.2 L (33-37) g/dL RDW Std Deviation 43.8 (39-50) fL RDW Coeff of Tommie 13.5 (11.5-14.5) % Plt Count 165 (140-350) 10*3/uL MPV 9.7 (7.4-12.2) FL Sodium 135 D (135-145) meq/L Potassium 4.7 (3.8-5.2) meq/L Chloride 104 (98-112) meq/L Carbon Dioxide 21 L (23-33) meq/L Anion Gap 10 (5-20) BUN 12 (7-22) mg/dL Creatinine 0.9 (0.50-1.20) mg/dL Estimated GFR > 60 (>60 ml/min/1.73m(2)) BUN/Creatinine Ratio 13.33 (6-20) Glucose 137 H (78-110) mg/dL Calculated Osmolality 281.0 (267-292) mOsm/kg Calcium 8.9 (8.7-10.7) mg/dL Vital Signs (24 hrs) Temp Pulse Resp BP BP Pulse Ox 06/06/17 17:00 98.1 F 90 18 143/75 93 06/06/17 11:28 97.4 F 84 18 125/69 94 03/28/18 08:28 98.7 F 74 16 131/75 96 06/06/17 07:00 16 06/06/17 04:57 94 06/06/17 04:25 98.8 F 85 20 97 06/06/17 00:22 99.3 F 98 20 88/54 93 06/05/17 20:48 98.4 F 95 20 120/70 95 06/05/17 19:00 95 Assessment: Right total knee replacement doing well Anemia postoperative exacerbation from regular anemia Cyclical neutropenia stable Plan: Patient will continue with pain control Physical therapy DVT prophylaxis with Lovenox and pneumatic sequential devices.
[2017-06-06] MEDS: ZOLPIDEM 10 MG TABLET PO SCH (20:00)
[2017-06-06] MEDS: DIVALPROEX SODIUM 250 MG TABLET PO SCH (20:30)
[2017-06-06] MEDS: LORazepam 1 MG TABLET PO PRN (21:06)
[2017-06-06] MEDS: diphenhydrAMINE 25 MG CAPSULE PO PRN (21:48)
[2017-06-07] MEDS: oxyCODONE/APAP 7.5/325 Tab 1 TAB TAB PO PRN ×6 (00:09→17:03)
[2017-06-07] MEDS: HYDROmorphone 2 MG/1 ML IVP PRN ×5 (00:21→23:11)
[2017-06-07] MEDS: LIOTHYRONINE SODIUM 25 MCG PO SCH (04:36)
[2017-06-07 05:24] LABS: Hematocrit [HCT] 27.2 % (37.0-47.0); Hemoglobin [HGB] 8.1 g/dL (12.0-16.0); MEAN CORPUSCULAR HEMOGLOBIN 27.6 PG (27-31); MEAN CORPUSCULAR HGB CONC 29.8 g/dL (33-37); MEAN CORPUSCULAR VOLUME 92.8 FL (81-99); MEAN PLATELET VOLUME 9.7 FL (7.4-12.2); RED BLOOD COUNT 2.93 10^6/uL (4.20-5.40)
[2017-06-07 05:28] LABS: BLOOD UREA NITROGEN 9 mg/dL (7-22); BUN/CREATININE RATIO 12.85 (6-20)
--- NOTE | 2017-06-07 07:48 | ORTHO.PROG ---
Last Taken Vital Signs: Vital Signs - Last Taken Temperature 98 F 06/07/17 07:19 Pulse Rate 94 06/07/17 07:19 Respiratory Rate 20 06/07/17 07:19 Blood Pressure 132/73 06/07/17 07:19 Pulse Ox 93 06/07/17 07:19 Subjective: Patient doing well this morning though her pain control is marginal. She is taking 2 Percocets about every 4 hours and is requiring medication IV in between near the end of the Percocet. Objective: Motor and sensory exam lower extremity is good her dressing is in place no active issues and no bleeding. Popliteal or thigh pain. Laboratory Results 06/07/17 06/07/17 Range/Units 04:41 04:41 WBC 5.08 (4.8-10.8) 10^3/uL RBC 2.93 L (4.20-5.40) 10^6/uL Hgb 8.1 L (12.0-16.0) g/dL Hct 27.2 L (37.0-47.0) % MCV 92.8 (81-99) FL MCH 27.6 (27-31) PG MCHC 29.8 L (33-37) g/dL RDW Std Deviation 44.3 (39-50) fL RDW Coeff of Tommie 13.5 (11.5-14.5) % Plt Count 173 (140-350) 10*3/uL MPV 9.7 (7.4-12.2) FL Sodium 137 (135-145) meq/L Potassium 4.4 (3.8-5.2) meq/L Chloride 104 (98-112) meq/L Carbon Dioxide 24 (23-33) meq/L Anion Gap 9 (5-20) BUN 9 (7-22) mg/dL Creatinine 0.7 (0.50-1.20) mg/dL Estimated GFR > 60 (>60 ml/min/1.73m(2)) BUN/Creatinine Ratio 12.85 (6-20) Glucose 108 (78-110) mg/dL Calculated Osmolality 283.0 (267-292) mOsm/kg Calcium 9.1 (8.7-10.7) mg/dL Vital Signs (24 hrs) Temp Pulse Resp BP BP Pulse Ox 06/07/17 07:19 98 F 94 20 132/73 93 06/07/17 05:00 99.1 F 109 H 20 152/84 93 06/07/17 04:00 96 06/07/17 00:37 98.9 F 98 20 166/69 96 06/06/17 20:46 98.8 F 92 20 131/60 97 06/06/17 17:00 98.1 F 90 18 143/75 93 06/06/17 11:28 97.4 F 84 18 125/69 94 06/06/17 08:28 98.7 F 74 16 131/75 96 Assessment: Right total knee replacement Postoperative anemia 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 We'll continue to monitor
[2017-06-07] MEDS: ENOXAPARIN SODIUM 30 MG/0.3 ML SYRINGE SUBCUT SCH ×2 (08:15→20:32)
[2017-06-07] MEDS: DIVALPROEX SODIUM 250 MG TABLET PO SCH ×2 (08:16→20:29)
[2017-06-07] MEDS: LOSARTAN 50 MG TABLET PO SCH (08:16)
[2017-06-07] MEDS: DOCUSATE 100 MG CAPSULE PO SCH ×2 (08:16→20:29)
[2017-06-07] MEDS: PANTOPRAZOLE 40 MG TABLET PO SCH ×2 (08:16→20:29)
[2017-06-07] MEDS: LITHIUM CARBONATE 300 MG CAPSULE PO SCH (08:16)
[2017-06-07] MEDS: DULOXETINE 60 MG CAPSULE PO SCH (08:16)
--- NOTE | 2017-06-07 09:36 | PDOC(PROG) ---
Date and Time of Service: 06/07/2017 9:36 AM Interval History: Subjective Patient continued to complain from pain in her right knee. Although she rates her pain as 9 out of 10 she does not appear to be at that level of pain. She said though her pain seems to be better than yesterday. Objective : Data - Labs CBC and BMP: 06/07/17 04:41 06/07/17 04:41 Objective : Exam - General General Appearance: No Acute Distress, Cooperative - Head Head Exam: Normal Inspection - Eye Eye Exam: Normal Appearance - ENT ENT Exam: Normal Exam - Neck Neck Exam: Normal Inspection - Respiratory Respiratory Exam: Clear to Auscultation - Bilaterally - Cardiovascular Cardiovascular Exam: RRR - GI/Abdominal GI/Abdominal Exam: Normal Bowel Sounds, Non Tender, Non Distended, Soft, No Organomegaly - Rectal Rectal Exam: Deferred - External Exam: Deferred - Extremities Additional Extremities Exam Details: Dressing applied to the right knee. - Neurological Neurological Exam: Alert, Oriented x 3, CN II-XII Intact, Speech Intact / Clear - Psychiatric Psychiatric Exam: Flat Affect - Integumentary Integumentary Exam: Normal Color Assessment and Plan - Patient Problems (1) Status post total knee replacement, right Current Visit: Yes Status: Acute Comment: Continue PT and OT. I think we'll continue current pain medications. Code(s): Z96.651 - Presence of right artificial knee joint (2) Hypothyroidism Current Visit: Yes Status: Acute Comment: Same med Code(s): E03.9 - Hypothyroidism, unspecified (3) Hypertension Current Visit: Yes Status: Acute Comment: Same med Code(s): I10 - Essential (primary) hypertension (4) Postoperative anemia due to acute blood loss Current Visit: Yes Status: Acute Comment: Hemoglobin is better than what it was yesterday. I think will watch it to another day put her on multivitamins and iron. Code(s): D62 - Acute posthemorrhagic anemia (5) Bipolar disorder Current Visit: Yes Status: Acute Comment: Same medications Code(s): F31.9 - Bipolar disorder, unspecified (6) DVT prophylaxis Current Visit: Yes Status: Acute Comment: She is on Lovenox
[2017-06-07] MEDS: Ondansetron ODT Tab 8 MG TAB PO PRN (11:50)
--- NOTE | 2017-06-07 12:11 | OT.PROG ---
Progress Note Progress Note: S: Pt. reports that she had a rough night due to pain and she is continuing to have pain. She reports that she would like to try to get dressed this morning. O: Pt. was seen for skilled occupational therapy session with a focus on ADL tasks. Pt. was supine in bed upon arrival. She moved from supine to sit at EOB with min. A. Pt. completed UE dressing with set up assist and was instructed in LE dressing with the use of a front office director. Pt. required mod. A to thread pants over her feet; however she was able to pull up pants independently. Pt. required min. A to stand from a raised EOB. Following OT session, pt. transitioned to physical therapy. A: Pt. required extra time today to complete all ADL tasks and mod. verbal cueing. Pt. may benefit from continued practice using the front office director and sock aide to complete LE dressing and therapeutic exercise to increase UE strength. P: Continue POC. MARY Bassett
--- NOTE | 2017-06-07 15:33 | OTI REPORT ---
Thank you for the referral of Claribel Boyle. She was seen on 06/06/17 for an occupational therapy inpatient evaluation status post right total knee arthroplasty. SUBJECTIVE: The patient is a 67-year-old female who is being seen secondary to having a right total knee arthroplasty. The patient lives in [place] with her . The patient reports that prior to admission she did a lot of Pilates. She was active and independent with all of her activities of daily living. The patient does have a higher toilet with grab bars as well as a shower with a shower seat. The patient does not have any adaptive devices for dressing self. PAST MEDICAL HISTORY: Past medical history can be found in the patient's medical record. OBJECTIVE FINDINGS: General observations: The patient was in bed upon the therapist's arrival. Pain: The patient's pain level was a 7/10 on the verbal analog scale (0=no pain , 10=worst pain) when the therapist arrived and ended up being 10/10 at the end of therapy. The patient's nurse was notified of her pain level prior to the session. She was almost due some pain meds. Bed mobility: The patient was able to come from supine to sit. Activities of daily living: While sitting edge of bed the patient was able to don and doff her sock independently. The patient was issued a orange picker machine operator in case she needs to reach items off of the floor. The patient was also issued a bath sponge for home independence. Range of motion: Upper extremity range of motion is within normal limits. Strength: Strength in shoulder flexion was 4/5, abduction was 3+/5, elbow flexion/extension was 4/5, and wrist flexion/extension was 4/5. Transfers: The patient completed sit to stand transfer with max assist. Ambulation: The patient ambulated to the chair with min to mod assist for balance. Her body did become a little shaky during this time secondary to the pain levels. ASSESSMENT: Problem List: Decreased ability to perform functional transfers Decreased upper extremity strength Decreased ability to perform ADLs while standing Decreased balance Short-Term Goals: To be met by discharge from inpatient: Patient will be able to [] Patient will be able to [] Patient will be able to [] Patient will be able to [] Long-Term Goals: To be met following discharge from inpatient: Patient will be able to [] Patient will be able to [] TREATMENT PLAN: Patient will be seen B.I.D during the week and one time per day over the weekend as an inpatient to address the above goals and objectives. INITIAL TREATMENT: Treatment today consisted of the initial evaluation followed by the patient transferring from supine to sit with max assist. The patient transferred from sit to stand with mod assist. The patient participated in ADLs and was instructed in adaptive equipment. The patient was left in chair with chair alarm on and call light within reach. Nurse was in the room when the therapist left for pain management. SHERON
--- NOTE | 2017-06-07 16:31 | OT.PROG ---
Progress Note Progress Note: S: pt refused to participate in any OT today, stating she was to tired.
--- NOTE | 2017-06-07 17:27 | PT.PROG ---
Progress Note Progress Note: S. Patient stated that she is very sore this morning. O. Patient was wheeled to the therapy gym where she had heat to her knee then performed heel slides, quad sets, ankle pumps, short arc quads all x 10. Patient performed sit to stands x 5 then ambulated 10 feet to the wheelchair and was returned back to her room where she was left in her bed with nursing. A. patient tolerated exercise fair, she is struggling with extension. she would continue to benefit from skilled therapy to increase strength, endurance and mobility. P. Continue POC.
[2017-06-07] MEDS: oxyCODONE/APAP 10/325 Tab 1 EACH TAB PO PRN ×2 (20:29→23:58)
[2017-06-07] MEDS: ZOLPIDEM 10 MG TABLET PO SCH (20:29)
[2017-06-07] MEDS: FERROUS SULFATE 325 MG TABLET PO SCH (20:29)
[2017-06-07] MEDS: LORazepam 1 MG TABLET PO PRN (23:10)
[2017-06-08] MEDS: HYDROmorphone 2 MG/1 ML IVP PRN (04:07)
[2017-06-08] MEDS: oxyCODONE/APAP 10/325 Tab 1 EACH TAB PO PRN ×5 (04:07→23:58)
[2017-06-08] MEDS: LORazepam 1 MG TABLET PO PRN (04:08)
[2017-06-08] MEDS: LIOTHYRONINE SODIUM 25 MCG PO SCH (05:10)
[2017-06-08 05:47] LABS: Hematocrit [HCT] 30.1 % (37.0-47.0); Hemoglobin [HGB] 9.2 g/dL (12.0-16.0); MEAN CORPUSCULAR HEMOGLOBIN 28.4 PG (27-31); MEAN CORPUSCULAR HGB CONC 30.6 g/dL (33-37); MEAN CORPUSCULAR VOLUME 92.9 FL (81-99); RED BLOOD COUNT 3.24 10^6/uL (4.20-5.40)
[2017-06-08 05:53] LABS: BLOOD UREA NITROGEN 8 mg/dL (7-22); BUN/CREATININE RATIO 11.42 (6-20)
[2017-06-08] MEDS: ENOXAPARIN SODIUM 30 MG/0.3 ML SYRINGE SUBCUT SCH ×2 (08:00→20:42)
[2017-06-08] MEDS: DULOXETINE 60 MG CAPSULE PO SCH (08:01)
[2017-06-08] MEDS: LITHIUM CARBONATE 300 MG CAPSULE PO SCH (08:01)
[2017-06-08] MEDS: DOCUSATE 100 MG CAPSULE PO SCH ×2 (08:01→20:43)
[2017-06-08] MEDS: FERROUS SULFATE 325 MG TABLET PO SCH ×2 (08:01→20:42)
[2017-06-08] MEDS: Multivitamin Tab 1 TAB PO SCH (08:02)
[2017-06-08] MEDS: DIVALPROEX SODIUM 250 MG TABLET PO SCH ×2 (08:02→20:43)
[2017-06-08] MEDS: LOSARTAN 50 MG TABLET PO SCH (08:02)
[2017-06-08] MEDS: PANTOPRAZOLE 40 MG TABLET PO SCH ×2 (08:02→20:43)
--- NOTE | 2017-06-08 08:40 | PT PM DAY ---
Diagnosis : Right Total Knee Arthroplasty PM - Physical Therapy S: The patient is still difficult to awaken and very drowsy. She reports pain at rest at a level of 5/10 today. O: The patient required moderate assist of one to lift the right lower extremity out of bed. Sitting balance is good. She was able to come to standing position with minimum assist of one. Standing balance is fair. She stands with right knee flexed with minimal weight-bearing on that side. She ambulated 15 feet x2 with a standard walker, partial weight-bearing on the right with verbal cues to actively flex the knee then heel strike and attempt to extend the knee in the weight-bearing position. The patient was brought down to the clinic where she received an application of moist heat pack x20 minutes including set up to the right knee followed by isometric active range of motion and light resistive exercises including heel slides, short arc quads, ankle pumps, straight leg raises, quad sets with facilitation, long arc quads, and slow passive stretch for extension and flexion. Passive extension today was 0 degrees after stretching with flexion to 95 degrees. Following treatment the patient was returned to her bed with a slow passive extension stretch with use of an ice pack to her knee. The patient was reminded not to use any pillows underneath the knee at any time. A: The patient is unable to gain full extension in the knee. P: Continue seeing patient BID during the week and one time per day over the weekend. We will continue to work with active and passive stretching and slow prolonged stretch to increase knee extension in non weight-bearing and weight-bearing positions as well as progress with exercise and gait training as tolerated. Note done by: FARSHAD Otero
[2017-06-08] MEDS: Ondansetron ODT Tab 8 MG TAB PO PRN (10:11)
--- NOTE | 2017-06-08 11:55 | ORTHO.PROG ---
Last Taken Vital Signs: Vital Signs - Last Taken Temperature 98.8 F 06/08/17 11:18 Pulse Rate 99 06/08/17 11:18 Respiratory Rate 20 06/08/17 11:18 Blood Pressure 109/61 06/08/17 11:18 Pulse Ox 93 06/08/17 11:18 Subjective: Patient notes that her pain control is about same despite having increased her Percocet dose from 7.5-10 Objective: Patient is a little sleepy today but easily arousable alert and oriented 3. The incision generally clean and dry there is a little old blood on the [place] dressing. No calf, popliteal adductor hiatus or thigh pain. Discussed range of motion during therapy she is -10 to about 95. Cannot do a straight leg raise Laboratory Results 06/08/17 06/08/17 Range/Units 04:20 04:20 WBC 9.35 (4.8-10.8) 10^3/uL RBC 3.24 L (4.20-5.40) 10^6/uL Hgb 9.2 L (12.0-16.0) g/dL Hct 30.1 L (37.0-47.0) % MCV 92.9 (81-99) FL MCH 28.4 (27-31) PG MCHC 30.6 L (33-37) g/dL RDW Std Deviation 43.1 (39-50) fL RDW Coeff of Tommie 13.2 (11.5-14.5) % Plt Count 267 (140-350) 10*3/uL MPV 10.0 (7.4-12.2) FL Sodium 137 (135-145) meq/L Potassium 3.7 L (3.8-5.2) meq/L Chloride 99 (98-112) meq/L Carbon Dioxide 23 (23-33) meq/L Anion Gap 15 (5-20) BUN 8 (7-22) mg/dL Creatinine 0.7 (0.50-1.20) mg/dL Estimated GFR > 60 (>60 ml/min/1.73m(2)) BUN/Creatinine Ratio 11.42 (6-20) Glucose 110 (78-110) mg/dL Calculated Osmolality 282.0 (267-292) mOsm/kg Calcium 9.5 (8.7-10.7) mg/dL Vital Signs (24 hrs) Temp Pulse Resp BP Pulse Ox 06/08/17 11:18 98.8 F 99 20 109/61 93 06/08/17 07:13 98.6 F 96 20 121/58 95 06/08/17 07:00 18 06/08/17 06:50 97 06/08/17 05:00 99.4 F 99 20 95/58 91 06/08/17 04:00 93 06/08/17 00:22 98 F 94 16 117/47 91 06/07/17 21:00 98.6 F 94 20 112/70 98 06/07/17 19:00 20 06/07/17 17:06 98 F 90 20 112/68 98 Assessment: Right total knee replacement Plan: At this point in time we will continue with our current pain control with breakthrough on diet lauded planned tomorrow I will will eliminate the dye lauded IV. Continue with DVT prophylaxis and physical therapy. Ice on a regular basis.
--- NOTE | 2017-06-08 13:57 | PDOC(PROG) ---
Date and Time of Service: 06/08/2017 Interval History: Subjective She said her pain seemed to be controlled with current regimen. Dr. Das did increase the Percocet yesterday. She did vomit earlier needed some Zofran but she is not nauseated now. Objective : Data - Labs CBC and BMP: 06/08/17 04:20 06/08/17 04:20 Objective : Exam - General General Appearance: No Acute Distress, Cooperative, Obese - Head Head Exam: Normal Inspection - Eye Eye Exam: Normal Appearance - ENT ENT Exam: Normal Exam - Neck Neck Exam: Normal Inspection - Respiratory Respiratory Exam: Clear to Auscultation - Bilaterally - Cardiovascular Cardiovascular Exam: RRR - GI/Abdominal GI/Abdominal Exam: Normal Bowel Sounds, Non Tender, Non Distended, Soft, No Organomegaly - Rectal Rectal Exam: Deferred - External Exam: Deferred - Extremities Extremities Exam: Normal Inspection Additional Extremities Exam Details: Dressing applied to right knee - Back Back Exam: Normal Inspection - Neurological Neurological Exam: Alert, Oriented x 3, CN II-XII Intact, Speech Intact / Clear - Psychiatric Psychiatric Exam: Flat Affect Assessment and Plan - Patient Problems (1) Status post total knee replacement, right Current Visit: Yes Status: Acute Comment: Continue PT and OT. I did discuss with her she may end up needing to be on swing bed she said she preferred not to. So we decided to see her progress with PT. Code(s): Z96.651 - Presence of right artificial knee joint (2) Hypothyroidism Current Visit: Yes Status: Acute Comment: Same med Code(s): E03.9 - Hypothyroidism, unspecified (3) Hypertension Current Visit: Yes Status: Acute Comment: Same med Code(s): I10 - Essential (primary) hypertension (4) Postoperative anemia due to acute blood loss Current Visit: Yes Status: Acute Comment: her Count is better I don't think there is a need for blood transfusion Code(s): D62 - Acute posthemorrhagic anemia (5) Bipolar disorder Current Visit: Yes Status: Acute Comment: Same medications Code(s): F31.9 - Bipolar disorder, unspecified (6) DVT prophylaxis Current Visit: Yes Status: Acute Comment: She is on Lovenox
--- NOTE | 2017-06-08 17:03 | OT.PROG ---
Progress Note Progress Note: S: pt reports that she was not real hungry this morning. O: pt was seen in her room and was in supine position. She needed mod A with bed mobility this morning. She completed x1 sit to stand before sitting again to regroup. She then stood and completed x1 more transfer approx 10 ft with cues to keep knee in ext. She transferred down to therapy in w/c. She then needed moD A with sit to stand from w/c. She then needed mod A to completed bed mobility onto bed. She received moist heat to knee. A: pt tolerated therapy better this morning, but is still having difficulty with knee ext. P: continue to work on knee ext.
--- NOTE | 2017-06-08 17:04 | OT.PROG ---
Progress Note Progress Note: S: pt refused any further OT this afternoon.
[2017-06-08] MEDS: NYSTATIN 15 GM POWDER TOPICAL PRN ×2 (18:09→20:45)
[2017-06-08] MEDS: ZOLPIDEM 10 MG TABLET PO SCH (20:42)
[2017-06-09] MEDS: LIOTHYRONINE SODIUM 25 MCG PO SCH (05:13)
[2017-06-09] MEDS: oxyCODONE/APAP 10/325 Tab 1 EACH TAB PO PRN ×5 (06:25→22:44)
--- NOTE | 2017-06-09 09:01 | PDOC(PROG) ---
Date and Time of Service: 06/09/2017 8:59 AM Interval History: Subjective Her pain seems to be under control. The last time she got the IV pain med was 4 am yesterday. She vomited yesterday once and she is denying nausea today. Objective : Data - Labs CBC and BMP: 06/08/17 04:20 06/08/17 04:20 Objective : Exam - General General Appearance: No Acute Distress, Cooperative - Head Head Exam: Normal Inspection - Eye Eye Exam: Normal Appearance - ENT ENT Exam: Normal Exam - Neck Neck Exam: Normal Inspection - Respiratory Respiratory Exam: Clear to Auscultation - Bilaterally - Cardiovascular Cardiovascular Exam: RRR - GI/Abdominal GI/Abdominal Exam: Normal Bowel Sounds, Non Tender, Non Distended, Soft, No Organomegaly - Rectal Rectal Exam: Deferred - External Exam: Deferred - Extremities Additional Extremities Exam Details: No edema. Dressing applied to right knee. - Back Back Exam: Normal Inspection - Neurological Neurological Exam: Alert, Oriented x 3, CN II-XII Intact, Speech Intact / Clear - Psychiatric Psychiatric Exam: Flat Affect Assessment and Plan - Patient Problems (1) Status post total knee replacement, right Current Visit: Yes Status: Acute Comment: Continue PT and OT. Continue same pain medication. I think will DC the IV Dilaudid. Code(s): Z96.651 - Presence of right artificial knee joint (2) Hypothyroidism Current Visit: Yes Status: Acute Comment: Same med Code(s): E03.9 - Hypothyroidism, unspecified (3) Hypertension Current Visit: Yes Status: Acute Comment: Same medications Code(s): I10 - Essential (primary) hypertension (4) Postoperative anemia due to acute blood loss Current Visit: Yes Status: Acute Comment: She is on iron and multivitamins Code(s): D62 - Acute posthemorrhagic anemia (5) Bipolar disorder Current Visit: Yes Status: Acute Comment: Same medications Code(s): F31.9 - Bipolar disorder, unspecified (6) DVT prophylaxis Current Visit: Yes Status: Acute Comment: She is on Lovenox
[2017-06-09] MEDS: DOCUSATE 100 MG CAPSULE PO SCH ×2 (10:18→21:48)
[2017-06-09] MEDS: PANTOPRAZOLE 40 MG TABLET PO SCH ×2 (10:18→21:48)
[2017-06-09] MEDS: DIVALPROEX SODIUM 250 MG TABLET PO SCH ×2 (10:18→21:48)
[2017-06-09] MEDS: DULOXETINE 60 MG CAPSULE PO SCH (10:19)
[2017-06-09] MEDS: LITHIUM CARBONATE 300 MG CAPSULE PO SCH (10:19)
[2017-06-09] MEDS: FERROUS SULFATE 325 MG TABLET PO SCH ×2 (10:19→21:48)
[2017-06-09] MEDS: Multivitamin Tab 1 TAB PO SCH (10:20)
[2017-06-09] MEDS: ENOXAPARIN SODIUM 30 MG/0.3 ML SYRINGE SUBCUT SCH ×2 (10:23→21:49)
--- NOTE | 2017-06-09 11:22 | ORTHO.PROG ---
Last Taken Vital Signs: Vital Signs - Last Taken Temperature 97.4 F 06/09/17 08:13 Pulse Rate 93 06/09/17 08:13 Respiratory Rate 20 06/09/17 08:13 Blood Pressure 127/62 06/09/17 08:13 Pulse Ox 91 06/09/17 08:13 Subjective: Patient feels she is doing well with therapy and making progress Objective: Examination shows that the patient has good flexion cold she can flex to about 80. She looks like she lacks about 20 of full extension call but according to therapy she is getting to about 10 and 90. Her swelling is mild to moderate. There is no calf or popliteal adductor hiatus or thigh pain. Motor and sensory exam is nonfocal Vital Signs (24 hrs) Temp Pulse Resp BP Pulse Ox 06/09/17 08:13 97.4 F 93 20 127/62 91 06/09/17 07:00 96 20 06/09/17 05:00 97.6 F 99 20 111/53 97 06/09/17 01:00 97.3 F 100 20 117/61 95 06/08/17 19:55 97.6 F 93 20 118/70 93 06/08/17 16:57 97.4 F 92 20 111/62 97 Assessment: Patient with right total knee replacement overall doing very well Plan: Patient was discontinued on her IV Dilaudid she should be able to go to a swing bed hopefully either today or tomorrow. She will continue with physical therapy and occupational therapy. We will keep her on her current level of narcotic of 10 mg 1-2 pills every 4 hours as needed and on Sunday I will likely decreases to 7-1/2 and try to slowly wean her off this over a period of 2-3 weeks. Continue with DVT prophylaxis with pneumatics and Lovenox. And we will continue with the ice[place]wood Seven ice machine.
[2017-06-09] MEDS: LOSARTAN 50 MG TABLET PO SCH (11:39)
--- NOTE | 2017-06-09 11:47 | OT.PROG ---
Progress Note Progress Note: S: pt reports that she is doing better and she likes the ice man on her knee as that reduces the swelling. O: pt was seen in her room and needed min A to completed bed mobility. She completed transfer approx 8 ft to [facility] and was transferred the rest of way to therapy. She completed transfer from / to mat table needing min A to complete sit to stand. She needed min A with bed mobility onto mat table as well. She received moist heat to knee to elongate muscle fibers. She completed basic LE exercises needing some passive assistance to start some of the exercises. Pt received manual therapy to work on ext in supine position and once she sat on on EOB. She was returned to her room and per her request transferred back to bed and ice man was applied. A: pt's flex is not bad, but continues to lack some ext and therapy will continue to work on this motion. she was instructed to continue to complete quad sets while in bed to assist with ext. P: continue to work on ext.
[2017-06-09] MEDS: LORazepam 1 MG TABLET PO PRN (18:51)
[2017-06-09] MEDS: NYSTATIN 15 GM POWDER TOPICAL PRN (21:46)
[2017-06-09] MEDS: BISACODYL 5 MG TABLET PO PRN (21:49)
[2017-06-09] MEDS: ZOLPIDEM 10 MG TABLET PO SCH (22:43)
[2017-06-09] MEDS ORDERED: HYDROmorphone 2 MG/1 ML IVP ONE (22:52)
[2017-06-10] MEDS: oxyCODONE/APAP 10/325 Tab 1 EACH TAB PO PRN ×6 (01:28→21:56)
[2017-06-10] MEDS: LIOTHYRONINE SODIUM 25 MCG PO SCH (05:34)
[2017-06-10] MEDS: NYSTATIN 15 GM POWDER TOPICAL PRN (05:35)
--- NOTE | 2017-06-10 08:35 | PDOC(PROG) ---
Date and Time of Service: 06/10/2017 8:34 AM Interval History: Subjective Patient feels better she said. Last night she had some worsening pain and she got a dose of Dilaudid. She is denying nausea. Objective : Data - Labs CBC and BMP: 06/08/17 04:20 06/08/17 04:20 Objective : Exam - General General Appearance: No Acute Distress, Cooperative - Head Head Exam: Normal Inspection - Eye Eye Exam: Normal Appearance - ENT ENT Exam: Normal Exam - Neck Neck Exam: Normal Inspection - Respiratory Respiratory Exam: Clear to Auscultation - Bilaterally - Cardiovascular Cardiovascular Exam: RRR - GI/Abdominal GI/Abdominal Exam: Normal Bowel Sounds, Non Tender, Non Distended, Soft, No Organomegaly - Rectal Rectal Exam: Deferred - External Exam: Deferred - Extremities Additional Extremities Exam Details: Dressing applied to the right knee. No significant edema. - Back Back Exam: Normal Inspection - Neurological Neurological Exam: Alert, Oriented x 3, CN II-XII Intact, Speech Intact / Clear - Psychiatric Psychiatric Exam: Flat Affect Assessment and Plan - Patient Problems (1) Status post total knee replacement, right Current Visit: Yes Status: Acute Comment: Continue PT and OT. Will double check with the media planner / buyer and see whether we can switch her to swing bed as she is open to it now. Code(s): Z96.651 - Presence of right artificial knee joint (2) Hypothyroidism Current Visit: Yes Status: Acute Comment: Same med Code(s): E03.9 - Hypothyroidism, unspecified (3) Hypertension Current Visit: Yes Status: Acute Comment: Same medication Code(s): I10 - Essential (primary) hypertension (4) Postoperative anemia due to acute blood loss Current Visit: Yes Status: Acute Comment: She is on iron and multivitamins Code(s): D62 - Acute posthemorrhagic anemia (5) Bipolar disorder Current Visit: Yes Status: Acute Comment: Same medications Code(s): F31.9 - Bipolar disorder, unspecified (6) DVT prophylaxis Current Visit: Yes Status: Acute Comment: She is on Lovenox
[2017-06-10] MEDS: PANTOPRAZOLE 40 MG TABLET PO SCH ×2 (08:52→21:52)
[2017-06-10] MEDS: ENOXAPARIN SODIUM 30 MG/0.3 ML SYRINGE SUBCUT SCH ×2 (08:52→21:53)
[2017-06-10] MEDS: DIVALPROEX SODIUM 250 MG TABLET PO SCH ×2 (08:52→21:52)
[2017-06-10] MEDS: LOSARTAN 50 MG TABLET PO SCH (08:53)
[2017-06-10] MEDS: DOCUSATE 100 MG CAPSULE PO SCH ×2 (08:53→21:52)
[2017-06-10] MEDS: DULOXETINE 60 MG CAPSULE PO SCH (08:53)
[2017-06-10] MEDS: FERROUS SULFATE 325 MG TABLET PO SCH ×2 (08:54→21:52)
[2017-06-10] MEDS: Multivitamin Tab 1 TAB PO SCH (08:55)
--- NOTE | 2017-06-10 09:48 | ORTHO.PROG ---
Last Taken Vital Signs: Vital Signs - Last Taken Temperature 97.1 F 06/10/17 07:52 Pulse Rate 91 06/10/17 07:52 Respiratory Rate 14 06/10/17 07:52 Blood Pressure 107/61 06/10/17 07:52 Pulse Ox 95 06/10/17 07:52 Subjective: Patient notes that she needed to take a dose of IV medication last night Objective: The dressing is clean and dry swelling is going down there is no calf, popliteal adductor hiatus or thigh pain motor and sensory exam is nonfocal. Vital Signs Temp Pulse Resp BP Pulse Ox 97.1 F 91 14 107/61 95 06/10/17 07:52 06/10/17 07:52 06/10/17 07:52 06/10/17 07:52 06/10/17 07:52 Assessment: Right total knee replacement overall doing well patient with chronic pain issues and with some difficulty consistently decreasing medication Plan: At the current time we would like to switch the patient to swing bed status I think she is going to require significant rehabilitation before she can get home. We really need to get the use of medication down to lower levels as we progressed forward because the goal is to get her back off of oral narcotics back to buspirone. We will continue with current management of DVT prophylaxis physical therapy and occupational therapy.
[2017-06-10] MEDS: LITHIUM CARBONATE 300 MG CAPSULE PO SCH (10:15)
[2017-06-10] MEDS: Ondansetron ODT Tab 8 MG TAB PO PRN (11:36)
--- NOTE | 2017-06-10 11:49 | OT.PROG ---
Progress Note Progress Note: S: pt reports not feeling well and that she did not have a good night. She reported pain almost like a cramp behind her affected knee. O: pt was seen in her room and completed transfer with Min A sit to stand from bed to w/c. She was transferred down to therapy where she received 20 min of moist heat. She received micro massage to knee to reduce edema. At this time pt began getting nauseous and did several times throughout therapy today. She did completed some light SAQ and heal toe raises. She was able to activate quad much better today and she did display ability to complete marches while sitting up. She received manual therapy in form of PROM in supine and sitting on EOB to increase ext. She was returned to her room by w/c and left in restroom per pt's request and nursing notified. A: Continue to monitor pt's pain behind affected knee and her nausea. Passively her Ext is not bad but still lacking in this area. Pt's did demonstrate ability to ambulate 10-12 ft. P: continue to progress with her ext.
[2017-06-10] MEDS ORDERED: HYDROcodone-APAP 10 MG-325 MG TABLET PO ONE (18:56)
[2017-06-10] MEDS: LORazepam 1 MG TABLET PO PRN (19:02)
[2017-06-10] MEDS: diphenhydrAMINE 25 MG CAPSULE PO PRN (21:51)
[2017-06-10] MEDS: ZOLPIDEM 10 MG TABLET PO SCH (21:52)
[2017-06-10] MEDS ORDERED: oxyCODONE/APAP 10/325 Tab 1 EACH TAB PO ONE (22:05)
[2017-06-11] MEDS: LORazepam 1 MG TABLET PO PRN (01:54)
[2017-06-11] MEDS: oxyCODONE/APAP 10/325 Tab 1 EACH TAB PO PRN ×6 (01:54→21:42)
[2017-06-11] MEDS: LIOTHYRONINE SODIUM 25 MCG PO SCH (06:05)
[2017-06-11] MEDS: FERROUS SULFATE 325 MG TABLET PO SCH ×2 (09:00→20:06)
[2017-06-11] MEDS: LITHIUM CARBONATE 300 MG CAPSULE PO SCH (09:00)
[2017-06-11] MEDS: ENOXAPARIN SODIUM 30 MG/0.3 ML SYRINGE SUBCUT SCH ×2 (09:00→20:06)
[2017-06-11] MEDS: Multivitamin Tab 1 TAB PO SCH (09:00)
[2017-06-11] MEDS: LOSARTAN 50 MG TABLET PO SCH (09:00)
[2017-06-11] MEDS: PANTOPRAZOLE 40 MG TABLET PO SCH ×2 (09:00→20:06)
[2017-06-11] MEDS: DIVALPROEX SODIUM 250 MG TABLET PO SCH ×2 (09:00→20:06)
[2017-06-11] MEDS: DULOXETINE 60 MG CAPSULE PO SCH (09:00)
[2017-06-11] MEDS: DOCUSATE 100 MG CAPSULE PO SCH ×2 (09:01→20:06)
[2017-06-11] MEDS: NYSTATIN 15 GM POWDER TOPICAL PRN ×2 (09:02→20:08)
--- NOTE | 2017-06-11 10:07 | PT AM DAY ---
Diagnosis : Right Total Knee Arthroplasty AM - Physical Therapy S: The patient is very difficult to arouse. She continues to turn her head away and keep her eyes closed throughout the majority of the session. She does answer questions appropriately but it difficult to get engaged in the therapy program. O: The patient received an application of moist heat pack x20 minutes including set up to the right knee followed by facilitation of active motion with active assist heel slides, facilitation of quad sets, active assist straight leg raises and short arc quads, and active assist knee flexion and extension in sitting position. The patient is unable to do a straight leg raise independently and requires mod assist of one to lift that right lower extremity in and out of bed. She was seen for patellar mobilization and slow active and passive stretching for the knee for both flexion/extension. Extension is -10 degrees and flexion is 105 degrees. She was also seen for gait training with a front wheeled walker. She was able to walk 15 feet x4 with front wheeled walker with mod assist of one. She was off of her oxygen for the exercise session today with oxygen saturation remaining at 94% throughout. A: The patient requires much encouragement to move. She has a knee flexion contracture which we need to aggressively address. P: Continue seeing patient BID during the week and one time per day over the weekend for transfers, ambulation, and range of motion/strengthening exercises. Note done by: Joan Banks, FARSHAD HOLBROOK
--- NOTE | 2017-06-11 11:29 | PT PM DAY ---
Diagnosis : Right Total Knee Arthroplasty PM - Physical Therapy S: The patient is much more alert this afternoon. She reports pain at rest in the right knee of 4/10 on the verbal analog scale (0=no pain, 10=worst pain). O: The patient received an application of moist heat pack x20 minutes including set up to the right knee with slow passive extension stretch, maintaining neutral rotation at the hip. This was followed by micro-current massage to facilitate circulation with very gentle stroking. She was then seen for therapeutic exercises including quad sets (she was able to demonstrate a good quad set this afternoon), assisted heel slides, straight leg raises, and short arc quads, as well as seated resisted knee flexion. She received slow prolonged stretch and passive stretching to increase knee extension with knee extension to -8 degrees. In seated position, knee flexion was able to flex to 105 passively. We also worked with the patient with gait training with proper gait sequencing with a walker and verbal cues to perform a heel strike and then bear weight through an actively extended knee. The patient was returned to her room where ice pack was reapplied. A: The patient's tolerance for activity is much improved this afternoon. P: Continue seeing patient BID during the week and one time per day over the weekend for transfers, ambulation, and range of motion/strengthening exercises. Note done by: FARSHAD Otero
[2017-06-11 12:28] LABS: BASOPHILS # (AUTO) 0.02 10*3/UL; BASOPHILS % (AUTO) 0.5 % (0-1); EOSINOPHILS # (AUTO) 0.11 10*3/UL; EOSINOPHILS % (AUTO) 2.8 % (0-8); Hematocrit [HCT] 25.1 % (37.0-47.0); Hemoglobin [HGB] 7.6 g/dL (12.0-16.0); LYMPHOCYTES # (AUTO) 0.67 10*3/uL; MEAN CORPUSCULAR HEMOGLOBIN 28.1 PG (27-31); MEAN CORPUSCULAR HGB CONC 30.3 g/dL (33-37); MEAN PLATELET VOLUME 8.5 FL (7.4-12.2); MONOCYTES % (AUTO) 15.5 % (5-15); NEUTROPHILS # (AUTO) 2.45 10*3/UL; NEUTROPHILS % (AUTO) 63.1 % (50-80)
[2017-06-11 12:30] LABS: PLATELET MORPHOLOGY COMMENT NORMAL MORPHOLOGY (NORM); RBC MORPHOLOGY COMMENT NORMAL MORPHOLOGY (NORM); WBC MORPHOLOGY COMMENT NORMAL MORPHOLOGY (NORM)
[2017-06-11 12:40] LABS: BLOOD UREA NITROGEN 4 mg/dL (7-22); BUN/CREATININE RATIO 5.71 (6-20); SERUM ALBUMIN 3.3 g/dL (3.5-4.8)
--- NOTE | 2017-06-11 13:24 | PDOC(PROG) ---
Interval History: Patient has no complaints doing well no chest pain nausea or vomiting Objective : Data - Labs CBC and BMP: 06/11/17 12:25 06/11/17 12:25 Objective : Exam - Head Head Exam: Normal Inspection, Normocephalic, Atraumatic - Respiratory Respiratory Exam: Clear to Auscultation - Bilaterally, Breathing Non Labored, Normal To Percussion, Normal to Percussion and Palpation - Cardiovascular Cardiovascular Exam: RRR, No Murmur, No Clicks, No Gallops, No Rubs, PMI Non- Displaced - GI/Abdominal GI/Abdominal Exam: Normal Bowel Sounds, Non Tender, Non Distended, Soft, No Masses, No Hepatomegaly, No Splenomegaly, No Organomegaly - Extremities Extremities Exam: No Clubbing Present, No Edema Present Assessment and Plan - Patient Problems (1) Hypokalemia Current Visit: Yes Status: Acute Comment: Potassium 40 by mouth twice a day Code(s): E87.6 - Hypokalemia (2) Status post total knee replacement, right Current Visit: Yes Status: Acute Comment: Deferred Dr. Das for anticoagulation they're trying to diminish pain medication Code(s): Z96.651 - Presence of right artificial knee joint (3) Hypothyroidism Current Visit: Yes Status: Acute Comment: Continue replacement Code(s): E03.9 - Hypothyroidism, unspecified (4) Hypertension Current Visit: Yes Status: Acute Comment: Stable at present time Code(s): I10 - Essential (primary) hypertension (5) Postoperative anemia due to acute blood loss Current Visit: Yes Status: Acute Comment: Hemoglobin 7.6 hemoglobin dynamically stable continue the iron therapy Code(s): D62 - Acute posthemorrhagic anemia (6) Bipolar disorder Current Visit: Yes Status: Acute Comment: Continue same meds Code(s): F31.9 - Bipolar disorder, unspecified (7) DVT prophylaxis Current Visit: Yes Status: Acute
--- NOTE | 2017-06-11 13:28 | ORTHO.PROG ---
Last Taken Vital Signs: Vital Signs - Last Taken Temperature 98.6 F 06/11/17 11:21 Pulse Rate 96 06/11/17 11:21 Respiratory Rate 18 06/11/17 11:21 Blood Pressure 139/72 06/11/17 11:21 Pulse Ox 92 06/11/17 11:21 Subjective: Patient notes she's doing very well today is really doing well with her range of motion of the knee. Objective: Patient incision is clean and dry she is pretty much close to full extension and has flexion easily to at least 90. This is all cold. Ligamentously stable neurovascularly intact no calf, popliteal adductor hiatus or thigh pain. Laboratory Results 06/11/17 06/11/17 Range/Units 12:25 12:25 WBC 3.88 L (4.8-10.8) 10^3/uL RBC 2.70 L (4.20-5.40) 10^6/uL Hgb 7.6 L (12.0-16.0) g/dL Hct 25.1 L (37.0-47.0) % MCV 93.0 (81-99) FL MCH 28.1 (27-31) PG MCHC 30.3 L (33-37) g/dL RDW Std Deviation 43.0 (39-50) fL RDW Coeff of Tommie 13.2 (11.5-14.5) % Plt Count 292 (140-350) 10*3/uL MPV 8.5 (7.4-12.2) FL Immature Gran % (Auto) 0.8 (0-5) % Neut % (Auto) 63.1 (50-80) % Lymph % (Auto) 17.3 (10-50) % [place] % (Auto) 15.5 H (5-15) % Eos % (Auto) 2.8 (0-8) % Baso % (Auto) 0.5 (0-1) % Immature Gran # (Auto) 0.03 10*3/UL Neut # (Auto) 2.45 10*3/UL Lymph # (Auto) 0.67 10*3/uL [place] # (Auto) 0.60 (0.3-0.8) 10*3/UL Eos # (Auto) 0.11 10*3/UL Baso # (Auto) 0.02 10*3/UL WBC Morphology Comment Normal morphology (NORM) Plt Morphology Comment Normal morphology (NORM) RBC Morph Comment Normal morphology (NORM) Sodium 136 (135-145) meq/L Potassium 3.6 L (3.8-5.2) meq/L Chloride 100 (98-112) meq/L Carbon Dioxide 23 (23-33) meq/L Anion Gap 13 (5-20) BUN 4 L (7-22) mg/dL Creatinine 0.7 (0.50-1.20) mg/dL Estimated GFR > 60 (>60 ml/min/1.73m(2)) BUN/Creatinine Ratio 5.71 L (6-20) Glucose 113 H (78-110) mg/dL Calculated Osmolality 279.0 (267-292) mOsm/kg Calcium 9.1 (8.7-10.7) mg/dL Total Bilirubin 0.4 (0.3-1.2) mg/dL AST 17 (8-39) IU/L ALT 27 (9-52) IU/L Alkaline Phosphatase 83 (38-126) IU/L Total Protein 6.2 (6.1-8.0) g/dL Albumin 3.3 L (3.5-4.8) g/dL Globulin 2.9 (2.50-4.10) g/dL Albumin/Globulin Ratio 1.10 L (1.3-2.0) mg/g Vital Signs (24 hrs) Temp Pulse Pulse Resp BP Pulse Ox 06/11/17 11:21 98.6 F 96 18 139/72 92 06/11/17 07:00 17 06/11/17 06:57 98 F 93 17 130/72 92 06/11/17 05:05 95 06/11/17 04:36 98.6 F 91 20 126/91 95 06/11/17 01:00 97.3 F 109 H 24 139/87 98 06/10/17 20:22 98.4 F 98 20 147/85 94 06/10/17 19:00 98 90 20 06/10/17 17:00 97.4 F 90 18 132/70 90 Assessment: Right total knee replacement Anemia Plan: We will continue with physical therapy and occupational therapy she is making excellent progress. At this point we want to decrease of the oral narcotic use try and get her back on her buspirone. Continue with DVT prophylaxis.
--- NOTE | 2017-06-11 14:50 | PT.PROG ---
Progress Note Progress Note: S: Pt states that she is doing fair this morning -states that she is starting to feel better. Dr. Das would like therapy to work on pt's extension. O: Tx consisted of MHP x 20 min to R knee f/b instruction in ther ex consisting of 10x each of the following - quad set, heel slides, SLR with min A x 1, SAQ, hip abd/add with min A x 1, 4 way ankle movements, glute squeezes. Pt able to perform supine to sit transfer independently. Pt received manual therapy to promote both knee flexion and extension in supine and seated positions along with grade I mobilizations for pain modulation. Amb x 15 ft to w/c. Pt was brought back up to her room and left with alarm set and call light within reach. A: Pt tolerated PT fair - requires assistance with trying to obtain quad activation and control. Pt reports nausea with manual therapy but able to tolerate for 20 minutes. Limited with ambulation distance at end of therapy due to fatigue and pain. P: Continue per POC.
--- NOTE | 2017-06-11 15:17 | OT.PROG ---
Progress Note Progress Note: Occupational Therapy: 30 min S: pt stated she was doing good and agreed to therapy. O: pt completed functional Independent transfer from supine to EOB bed. pt completed functional ambulation x15' with FWW and CGA for safety. pt completed ADL toileting task and all toileting hygiene tasks independently. pt completed functional transfer from w/c to mat table with FWW and CGA for safety. pt completed RTb exercises of biceps x 20, triceps x20, chest pulls x20, flexion x20, shoulder rows x20. A: pt tolerated session well and reported that working her arms felt good. P: continue POC
--- NOTE | 2017-06-11 16:44 | PT.PROG ---
Progress Note Progress Note: S. Patient stated that she is feeling better than yesterday, however is still feeling a little weak. O. Patient ambulated 15 feet to the wheelchair and was wheeled to the therapy gym where she had heat then performed heel slides, quad sets, ankle pumps(red), short arc quads, seated long arc quads, and sit to stands all x 10. Patient ambulated 70 feet to the wheelchair and was returned to her room where she was left with alarm and call light. A. Patient tolerated therapy fair this afternoon, she was able to complete exercises, she continues to lack full extension, she is making gains with flexion however. Patient would continue to benefit from skilled therapy at this time. P. Continue POC.
[2017-06-11] MEDS: BISACODYL 5 MG TABLET PO PRN (18:47)
[2017-06-11] MEDS: POTASSIUM CHLORIDE 20 MEQ TAB PO SCH (20:06)
[2017-06-11] MEDS: ZOLPIDEM 10 MG TABLET PO SCH (20:06)
[2017-06-12] MEDS: oxyCODONE/APAP 10/325 Tab 1 EACH TAB PO PRN ×2 (01:40→06:12)
[2017-06-12] MEDS: LIOTHYRONINE SODIUM 25 MCG PO SCH (04:42)
[2017-06-12] MEDS: POTASSIUM CHLORIDE 20 MEQ TAB PO SCH ×2 (08:49→20:15)
[2017-06-12] MEDS: PANTOPRAZOLE 40 MG TABLET PO SCH ×2 (08:49→20:15)
[2017-06-12] MEDS: ENOXAPARIN SODIUM 30 MG/0.3 ML SYRINGE SUBCUT SCH ×2 (08:49→20:15)
[2017-06-12] MEDS: LITHIUM CARBONATE 300 MG CAPSULE PO SCH (08:49)
[2017-06-12] MEDS: DIVALPROEX SODIUM 250 MG TABLET PO SCH ×2 (08:50→20:15)
[2017-06-12] MEDS: LOSARTAN 50 MG TABLET PO SCH (08:50)
[2017-06-12] MEDS: Multivitamin Tab 1 TAB PO SCH (08:50)
[2017-06-12] MEDS: DOCUSATE 100 MG CAPSULE PO SCH ×2 (08:50→20:14)
[2017-06-12] MEDS: DULOXETINE 60 MG CAPSULE PO SCH (08:50)
[2017-06-12] MEDS: FERROUS SULFATE 325 MG TABLET PO SCH ×2 (08:50→20:15)
[2017-06-12 10:45] LABS: BASOPHILS # (AUTO) 0.04 10*3/UL; BASOPHILS % (AUTO) 0.8 % (0-1); EOSINOPHILS # (AUTO) 0.17 10*3/UL; EOSINOPHILS % (AUTO) 3.4 % (0-8); Hematocrit [HCT] 26.3 % (37.0-47.0); Hemoglobin [HGB] 7.9 g/dL (12.0-16.0); MEAN CORPUSCULAR HEMOGLOBIN 28.1 PG (27-31); MEAN CORPUSCULAR VOLUME 93.6 FL (81-99); MEAN PLATELET VOLUME 8.3 FL (7.4-12.2); NEUTROPHILS # (AUTO) 3.12 10*3/UL; NEUTROPHILS % (AUTO) 62.4 % (50-80); RED BLOOD COUNT 2.81 10^6/uL (4.20-5.40)
--- NOTE | 2017-06-12 10:47 | PDOC(PROG) ---
Interval History: Patient has no complaints orthopedic surgery decreased the interval of her pain medication. No chest pain nausea or vomiting in good spirits Objective : Data - Labs CBC and BMP: 06/11/17 12:25 06/11/17 12:25 Objective : Exam - General General Appearance: No Acute Distress, Cooperative - Respiratory Respiratory Exam: Clear to Auscultation - Bilaterally, Breathing Non Labored, Normal To Percussion, Normal to Percussion and Palpation - Cardiovascular Cardiovascular Exam: RRR, No Murmur, No Clicks, No Gallops, No Rubs, PMI Non- Displaced - GI/Abdominal GI/Abdominal Exam: Normal Bowel Sounds, Non Tender, Non Distended, Soft, No Masses, No Hepatomegaly, No Splenomegaly, No Organomegaly Assessment and Plan - Patient Problems (1) Hypokalemia Current Visit: Yes Status: Acute Comment: Replaced Code(s): E87.6 - Hypokalemia (2) Status post total knee replacement, right Current Visit: Yes Status: Acute Comment: Defer to orthopedic surgery PT and OT for pain control and anticoagulation Code(s): Z96.651 - Presence of right artificial knee joint (3) Hypothyroidism Current Visit: Yes Status: Acute Comment: Continue replacement Code(s): E03.9 - Hypothyroidism, unspecified (4) Hypertension Current Visit: Yes Status: Acute Comment: Stable at present time Code(s): I10 - Essential (primary) hypertension (5) Postoperative anemia due to acute blood loss Current Visit: Yes Status: Acute Comment: Check CBC hemodynamically stable Code(s): D62 - Acute posthemorrhagic anemia (6) Bipolar disorder Current Visit: Yes Status: Acute Code(s): F31.9 - Bipolar disorder, unspecified (7) DVT prophylaxis Current Visit: Yes Status: Acute
[2017-06-12 11:06] LABS: BLOOD UREA NITROGEN 6 mg/dL (7-22); BUN/CREATININE RATIO 8.57 (6-20); SERUM ALBUMIN 3.4 g/dL (3.5-4.8)
[2017-06-12 11:12] LABS: PLATELET MORPHOLOGY COMMENT NORMAL MORPHOLOGY (NORM); RBC MORPHOLOGY COMMENT NORMAL MORPHOLOGY (NORM); WBC MORPHOLOGY COMMENT NORMAL MORPHOLOGY (NORM)
[2017-06-12] MEDS ORDERED: CYANOCOBALAMIN 1000 MCG/1 ML VIAL IM ONE (11:34)
[2017-06-12] MEDS: oxyCODONE/APAP 7.5/325 Tab 1 TAB TAB PO PRN ×2 (12:00→18:43)
--- NOTE | 2017-06-12 14:35 | ORTHO.PROG ---
Last Taken Vital Signs: Vital Signs - Last Taken Temperature 98.2 F 06/12/17 11:04 Pulse Rate 94 06/12/17 11:04 Respiratory Rate 18 06/12/17 11:04 Blood Pressure 141/67 06/12/17 11:04 Pulse Ox 96 06/12/17 11:04 Subjective: Patient overall is doing reasonably well though struggling with mobilization and pain control Objective: Patient has flexion to about 95 she lacks about 5 of full extension her dressing is clean and dry there is no evidence of deep infection a mild amount of swelling about the knee motor and sensory exam is nonfocal. No calf, popliteal, adductor hiatus, or thigh pain. Vital Signs (24 hrs) Temp Pulse Pulse Resp BP Pulse Ox 06/12/17 11:04 98.2 F 94 18 141/67 96 06/12/17 06:52 78 06/12/17 06:27 98.2 F 89 17 130/69 96 06/12/17 04:55 92 06/12/17 04:43 102 H 20 132/67 92 06/12/17 01:00 97.9 F 99 20 95 06/11/17 20:16 97.7 F 96 20 134/63 96 06/11/17 16:23 98.6 F 93 17 137/69 91 Assessment: Right total knee replacement overall doing well patient with anemia. Plan: Patient will continue with physical therapy and occupational therapy. We are going to decrease the dosing of pain medication and also the frequency to try and wean her off this medication since this is can be extremely difficult based on her previous history. Continued to utilize pneumatic sequential devices and enoxaparin for DVT prophylaxis. Reposition and ice frequently as needed to decrease utilization of pain medication
--- NOTE | 2017-06-12 16:13 | PT.PROG ---
Progress Note Progress Note: S. Patient stated that she is feeling nauseous this morning. She reports that her hip is more sore than her knee. O. Patient ambulated 80 feet to the wheelchair and was wheeled to the therapy gym where she had heat and micro massage to her knee then performed heel slides , quad sets, ankle pumps, short arc quads, seated long arc quads, marches, and sit to stands all x 10. Patient ambulated 30 feet then was returned to her room where she was left at the edge of bed with alarm and call light. A. Patient tolerated therapy well this morning, she continues to lack full extension however is gaining mobility. she continues to become nauseated during therapy and is struggling to ambulate further than 80 feet. Patient would continue to benefit from skilled therapy at this time. P. Continue POC.
[2017-06-12] MEDS: ZOLPIDEM 10 MG TABLET PO SCH (20:15)
[2017-06-13] MEDS: oxyCODONE/APAP 7.5/325 Tab 1 TAB TAB PO PRN ×4 (00:13→20:19)
[2017-06-13] MEDS: LIOTHYRONINE SODIUM 25 MCG PO SCH (05:17)
[2017-06-13 05:41] LABS: BASOPHILS # (AUTO) 0.02 10*3/UL; BASOPHILS % (AUTO) 0.4 % (0-1); EOSINOPHILS # (AUTO) 0.12 10*3/UL; EOSINOPHILS % (AUTO) 2.3 % (0-8); Hematocrit [HCT] 24.8 % (37.0-47.0); Hemoglobin [HGB] 7.4 g/dL (12.0-16.0); LYMPHOCYTES # (AUTO) 1.33 10*3/uL; MEAN CORPUSCULAR HEMOGLOBIN 27.9 PG (27-31); MEAN CORPUSCULAR HGB CONC 29.8 g/dL (33-37); MEAN CORPUSCULAR VOLUME 93.6 FL (81-99); MEAN PLATELET VOLUME 8.6 FL (7.4-12.2); MONOCYTES # (AUTO) 0.61 10*3/UL (0.3-0.8); MONOCYTES % (AUTO) 11.6 % (5-15); NEUTROPHILS % (AUTO) 59.1 % (50-80); RED BLOOD COUNT 2.65 10^6/uL (4.20-5.40)
[2017-06-13 05:47] LABS: PLATELET MORPHOLOGY COMMENT NORMAL MORPHOLOGY (NORM); RBC MORPHOLOGY COMMENT NORMAL MORPHOLOGY (NORM); WBC MORPHOLOGY COMMENT NORMAL MORPHOLOGY (NORM)
--- NOTE | 2017-06-13 08:01 | ORTHO.PROG ---
Last Taken Vital Signs: Vital Signs - Last Taken Temperature 97.9 F 06/13/17 05:00 Pulse Rate 97 06/13/17 05:00 Respiratory Rate 18 06/13/17 05:00 Blood Pressure 133/74 06/13/17 05:00 Pulse Ox 93 06/13/17 05:00 Subjective: Patient doing okay this morning is making some progress moving forward after right total knee replacement Objective: Examination shows that the patient has flexion to about 90 she can lift her leg but can't do a straight leg raise. She has flexion of about 30 actively she can get to about 10 from full extension. Her motor and sensory exam is nonfocal other dressing generally clean and dry. Laboratory Results 06/12/17 06/12/17 06/13/17 Range/Units 10:41 Unknown 05:17 WBC 5.00 5.25 (4.8-10.8) 10^3/uL RBC 2.81 L 2.65 L (4.20-5.40) 10^6/uL Hgb 7.9 L 7.4 L (12.0-16.0) g/dL Hct 26.3 L 24.8 L (37.0-47.0) % MCV 93.6 93.6 (81-99) FL MCH 28.1 27.9 (27-31) PG MCHC 30.0 L 29.8 L (33-37) g/dL RDW Std Deviation 45.3 45.7 (39-50) fL RDW Coeff of Tommie 13.8 14.2 (11.5-14.5) % Plt Count 358 H 369 H (140-350) 10*3/uL MPV 8.3 8.6 (7.4-12.2) FL Immature Gran % (Auto) 1.4 1.3 (0-5) % Neut % (Auto) 62.4 59.1 (50-80) % Lymph % (Auto) 18.0 25.3 (10-50) % [place] % (Auto) 14.0 11.6 (5-15) % Eos % (Auto) 3.4 2.3 (0-8) % Baso % (Auto) 0.8 0.4 (0-1) % Immature Gran # (Auto) 0.07 0.07 10*3/UL Neut # (Auto) 3.12 3.10 10*3/UL Lymph # (Auto) 0.90 1.33 10*3/uL [place] # (Auto) 0.70 0.61 (0.3-0.8) 10*3/UL Eos # (Auto) 0.17 0.12 10*3/UL Baso # (Auto) 0.04 0.02 10*3/UL WBC Morphology Comment Normal morphology Normal morphology (NORM) Plt Morphology Comment Normal morphology Normal morphology (NORM) RBC Morph Comment Normal morphology Normal morphology (NORM) Sodium 138 (135-145) meq/L Potassium 3.8 (3.8-5.2) meq/L Chloride 101 (98-112) meq/L Carbon Dioxide 24 (23-33) meq/L Anion Gap 13 (5-20) BUN 6 L (7-22) mg/dL Creatinine 0.7 (0.50-1.20) mg/dL Estimated GFR > 60 (>60 ml/min/1.73m(2)) BUN/Creatinine Ratio 8.57 (6-20) Glucose 116 H (78-110) mg/dL Calculated Osmolality 284.0 (267-292) mOsm/kg Calcium 9.3 (8.7-10.7) mg/dL Total Bilirubin 0.3 (0.3-1.2) mg/dL AST 14 (8-39) IU/L ALT 27 (9-52) IU/L Alkaline Phosphatase 86 (38-126) IU/L Total Protein 6.5 (6.1-8.0) g/dL Albumin 3.4 L (3.5-4.8) g/dL Globulin 3.1 (2.50-4.10) g/dL Albumin/Globulin Ratio 1.00 L (1.3-2.0) mg/g Vital Signs (24 hrs) Temp Pulse Resp BP Pulse Ox 06/13/17 05:00 97.9 F 97 18 133/74 93 06/13/17 00:15 98.7 F 98 20 152/71 95 06/12/17 20:48 98.4 F 102 H 20 194/84 96 06/12/17 15:51 98.3 F 91 17 133/73 94 06/12/17 11:04 98.2 F 94 18 141/67 96 Assessment: Right total knee replacement doing reasonably well Chronic cyclical neutropenia stable Anemia Deconditioning Plan: I truly suspect that the patient will require further care and treatment preferably in an inpatient setting such as a swing bed so that we can monitor her narcotic use and slowly wean her off the medication. The other big issue is previous deconditioning that is slowing her progress moving forward. We'll continue with DVT prophylaxis with enoxaparin and pneumatic sequentials
--- NOTE | 2017-06-13 08:09 | DI ---
[facility], 06/13/2017 7:00 AM: Clinical History: Difficulty swallowing. 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 A "time out" session was performed to verify the patient's name and date of prior to initiating this procedure. Deglutition is normal and the esophagus strips well. The esophagus is normal. There is no esophageal stricture, or evidence of esophagitis. There is no hiatal hernia. Evaluation for ref lux was not attempted because the patient is status post total right knee replacement within the last week. The fundal remnant of the stomach shows rugae. The gastrojejunal anastomosis is widely patent and there is rapid passage of contrast into both the afferent and efferent loops. Readin. The esophagus is grossly normal. 2. The gastric remnant is not overly distended and rugae are present. There is no retained particula te material in the stomach. 3. The gastrojejunal anastomosis is widely patent and contrast enters both the afferent and efferent loops readily
[2017-06-13] MEDS ORDERED: ASCORBIC ACID 500 MG TABLET PO SCH (09:00)
[2017-06-13] MEDS ORDERED: FOLIC ACID 1 MG TABLET PO SCH (09:00)
[2017-06-13] MEDS: ENOXAPARIN SODIUM 30 MG/0.3 ML SYRINGE SUBCUT SCH ×2 (09:04→20:18)
[2017-06-13] MEDS: DOCUSATE 100 MG CAPSULE PO SCH ×2 (09:05→20:18)
[2017-06-13] MEDS: PANTOPRAZOLE 40 MG TABLET PO SCH ×2 (09:05→20:19)
[2017-06-13] MEDS: LITHIUM CARBONATE 300 MG CAPSULE PO SCH (09:05)
[2017-06-13] MEDS: Multivitamin Tab 1 TAB PO SCH (09:05)
[2017-06-13] MEDS: FERROUS SULFATE 325 MG TABLET PO SCH ×2 (09:05→18:55)
[2017-06-13] MEDS: DIVALPROEX SODIUM 250 MG TABLET PO SCH ×2 (09:06→20:18)
[2017-06-13] MEDS: LOSARTAN 50 MG TABLET PO SCH (09:06)
[2017-06-13] MEDS: DULOXETINE 60 MG CAPSULE PO SCH (09:06)
[2017-06-13] MEDS: POTASSIUM CHLORIDE 20 MEQ TAB PO SCH (10:23)
--- NOTE | 2017-06-13 10:45 | PDOC(PROG) ---
Interval History: Patient is doing well from PT standpoint she had some nausea this morning which has resolved. No chest pain no shortness of breath Objective : Data - Labs CBC and BMP: 06/13/17 05:17 06/12/17 10:41 Objective : Exam - General General Appearance: No Acute Distress, Cooperative - Respiratory Respiratory Exam: Clear to Auscultation - Bilaterally, Breathing Non Labored, Normal To Percussion, Normal to Percussion and Palpation - Extremities Extremities Exam: No Clubbing Present, No Edema Present, No Cyanosis Present Assessment and Plan - Patient Problems (1) Hypokalemia Current Visit: Yes Status: Acute Code(s): E87.6 - Hypokalemia (2) Status post total knee replacement, right Current Visit: Yes Status: Acute Code(s): Z96.651 - Presence of right artificial knee joint (3) Hypothyroidism Current Visit: Yes Status: Acute Code(s): E03.9 - Hypothyroidism, unspecified (4) Hypertension Current Visit: Yes Status: Acute Code(s): I10 - Essential (primary) hypertension (5) Postoperative anemia due to acute blood loss Current Visit: Yes Status: Acute Code(s): D62 - Acute posthemorrhagic anemia (6) Bipolar disorder Current Visit: Yes Status: Acute Code(s): F31.9 - Bipolar disorder, unspecified (7) DVT prophylaxis Current Visit: Yes Status: Acute - Assessment / Plan Additional Assessment/Plan Details: #1 status post knee replacement Dr. Das following along defer for anticoagulation and pain management PT OT orders #2 nauseathis could be multifactorial the toes secondary to Depakote can do it but we will spread out her vitamins which consist of folate acid because of her anemia and iron also I instructed nursing to give her medications the way she usually takes them at home and not with our schedule she is very happy about this #3 and cyclical neutropeniathis is stable some of her medications cause aplastic anemia and the low white cell count including Depakote Victoza but is been recurring and ongoing #4 patient had remote gastric surgery her swallowing is the is good and upper GI series was normal #5. Anemia patient is hemodynamically stable we will hold off maybe one more day she might need transfusion we will visit with Dr. Das as well
--- NOTE | 2017-06-13 11:43 | PT PM DAY ---
Diagnosis : Right Total Knee Arthroplasty PM - Physical Therapy S: The patient reports having a headache upon arrival for therapy; however , she reports that she just received pain medication and is willing to participate in therapy. The patient's spouse attended part of the treatment session and stated they have 10 steps to enter their [facility] town home and the bathroom is very small and will not accommodate a walker. O: The patient ambulated 15 feet with contact guard assist with walker and contact guard assist to wheelchair to be transported to therapy gym. The patient received an application of moist heat pack x20 minutes including set up to the right knee positioned in extension. The patient performed lower extremity strengthening exercises including quad sets, heel slides, ankle dorsiflexion/plantarflexion with red theraband, short arc quads, seated long arc quads, hamstring curls with red theraband, seated abduction/adduction with manual resistance, and box step ups x6 onto a 2" box in anticipation of returning home where the patient will have to ascend 10 steps. During step ups the patient reported feeling "woozy" and requested to return to a sitting position. At the end of treatment, the patient returned to beside chair with call button within reach and alarms activated. A: We continued with strengthening and range of motion exercises but with decreased repetitions as the patient reported not feeling well. We initiated box step ups in preparation for stair climbing as she will need to climb stairs to access her house upon discharge. P: Continue seeing patient BID during the week and one time per day over the weekend for transfers, ambulation, and range of motion/strengthening exercises. Dictated by: JO-ANN Steve Supervised by: LASHELL Hooper
--- NOTE | 2017-06-13 12:28 | OT AM DAY ---
Diagnosis : Right Total Knee Arthroplasty AM - Occupational Therapy S: The patient reports she is feeling a little better. She still gets nauseated after pain medications. O: Today the patient was able to come from supine to sit independently. She sat edge of bed and completed dressing tasks with stand by assistance. She does have enough mobility to don and doff her socks and is demonstrating enough balance to pull pants to waist level. The patient was able to go to the sink to complete hygiene activities with stand by assist. The patient is able to complete functional transfers with contact guard assist. A: The patient is still getting very nauseated. Her pain levels tend to be elevated with movement. P: Continue seeing patient BID during the week and one time per day over the weekend for upper extremity strengthening, ADLs, and overall functional mobility. SHERON
--- NOTE | 2017-06-13 12:32 | OT PM DAY ---
Diagnosis : Right Total Knee Arthroplasty PM - Occupational Therapy S: The patient reports she has a headache and doesn't feel too well this afternoon. O: The patient was able to transfer from bed to stand with stand by assistance. The patient was able to walk to the bathroom with contact guard assist and transferred safely to sitting on the toilet. The patient was independent with toilet hygiene. She then walked to the sink to wash and dry hands. The patient was issued a high rise toilet seat. The patient is going to have to go to the [place] in the [facility] before going back to [facility] and she is worried about being able to complete a toilet transfer on the lower toilet in the [facility]. A: The patient will benefit from the high rise toilet seat. She is improving with her functional transfers. She is still having a lot of pain. P: Continue seeing patient BID during the week and one time per day over the weekend for upper extremity strengthening, ADLs, and overall functional mobility. SHERON
[2017-06-13] MEDS: Ondansetron ODT Tab 8 MG TAB PO PRN (16:49)
--- NOTE | 2017-06-13 17:05 | PT.PROG ---
Progress Note Progress Note: S: Pt states that her B shoulders are painful from vomiting a lot this AM. Pt states that she is feeling better this afternoon but does not have much energy as she has really not been able to eat much. O: Tx consisted of: amb x 50 ft with walker and SBA x 1 for safety. Pt was brought down to therapy and received MHP x 20 min to R knee f/b instruction in ther ex consisting of 10x each of the following: quad sets, heel slides, SLR, SAQ, hip abd/add, LAQ. 10 x STS. 10 step ups onto a 4 inch box with use of standard walker. Pt received manual therapy to R knee to promote extension and flexion in both supine and seated positions along with grade I/II mobilizations for pain modulation. Pt was brought back up to her room and left in chair with alarm set and call light within reach. A: Pt fatigued easily with activity due to not having much energy and having a difficult morning. Pt tolerated manual rx better on this date but continues to struggle with extension. P: Continue per POC.
--- NOTE | 2017-06-13 17:07 | OT.PROG ---
Progress Note Progress Note: S: pt stated that she is feeling better this afternoon. O: pt was seen in therapy after being transferred down by PT. Pt completed UE exercises with RTB in all planes and cane 2# all x15 to increase UE strength. A: pt may continue to benefit from therapy to increase activity tolerance during ambulation. P: continue per POC.
[2017-06-13] MEDS: ZOLPIDEM 10 MG TABLET PO SCH (20:18)
[2017-06-14] MEDS: oxyCODONE/APAP 7.5/325 Tab 1 TAB TAB PO PRN ×2 (02:20→08:08)
[2017-06-14] MEDS: LIOTHYRONINE SODIUM 25 MCG PO SCH (04:40)
[2017-06-14] MEDS: Ondansetron ODT Tab 8 MG TAB PO PRN (04:43)
[2017-06-14 05:46] LABS: BASOPHILS # (AUTO) 0.02 10*3/UL; BASOPHILS % (AUTO) 0.3 % (0-1); EOSINOPHILS # (AUTO) 0.11 10*3/UL; EOSINOPHILS % (AUTO) 1.9 % (0-8); Hematocrit [HCT] 25.1 % (37.0-47.0); Hemoglobin [HGB] 7.7 g/dL (12.0-16.0); MEAN CORPUSCULAR HEMOGLOBIN 28.5 PG (27-31); MEAN CORPUSCULAR HGB CONC 30.7 g/dL (33-37); MEAN PLATELET VOLUME 8.8 FL (7.4-12.2); MONOCYTES # (AUTO) 0.68 10*3/UL (0.3-0.8); MONOCYTES % (AUTO) 11.7 % (5-15); NEUTROPHILS # (AUTO) 4.02 10*3/UL; NEUTROPHILS % (AUTO) 69.1 % (50-80)
[2017-06-14 05:49] LABS: PLATELET MORPHOLOGY COMMENT NORMAL MORPHOLOGY (NORM); RBC MORPHOLOGY COMMENT NORMAL MORPHOLOGY (NORM); WBC MORPHOLOGY COMMENT NORMAL MORPHOLOGY (NORM)
[2017-06-14] MEDS: FERROUS SULFATE 325 MG TABLET PO SCH (06:23)
[2017-06-14 07:15] VITALS: RESP 17; O2SAT 95
[2017-06-14] MEDS: ENOXAPARIN SODIUM 30 MG/0.3 ML SYRINGE SUBCUT SCH (08:07)
[2017-06-14] MEDS: LOSARTAN 50 MG TABLET PO SCH (08:08)
[2017-06-14] MEDS: DIVALPROEX SODIUM 250 MG TABLET PO SCH (08:08)
[2017-06-14] MEDS: PANTOPRAZOLE 40 MG TABLET PO SCH (08:08)
[2017-06-14] MEDS: DOCUSATE 100 MG CAPSULE PO SCH (08:09)
[2017-06-14] MEDS: DULOXETINE 60 MG CAPSULE PO SCH (08:09)
[2017-06-14 11:16] VITALS: BP 143/77; TEMP 97.2
--- NOTE | 2017-06-14 11:30 | PT.PROG ---
Progress Note Progress Note: Patient refused therapy this morning due to having an appointment and not wanting to miss it. Passive ROM performed emphasis on Extension.
[2017-06-14] MEDS ORDERED: KETOROLAC 15 MG/1 ML VIAL IVP PRN (11:50)
--- NOTE | 2017-06-14 12:24 | PDOC(PROG) ---
Interval History: Patient is doing well did not tolerate her vitamins we have stopped those complains of pain. No nausea no vomiting did not sleep much last night Objective : Data - Labs CBC and BMP: 06/14/17 04:40 06/12/17 10:41 Objective : Exam - General General Appearance: No Acute Distress, Cooperative - Respiratory Respiratory Exam: Clear to Auscultation - Bilaterally, Breathing Non Labored, Normal To Percussion, Normal to Percussion and Palpation - Cardiovascular Cardiovascular Exam: RRR, No Murmur, No Clicks, No Gallops, No Rubs, PMI Non- Displaced - GI/Abdominal GI/Abdominal Exam: Normal Bowel Sounds, Non Tender, Non Distended, Soft, No Masses, No Hepatomegaly, No Splenomegaly, No Organomegaly Assessment and Plan - Patient Problems (1) Hypokalemia Current Visit: Yes Status: Acute Comment: This is been replaced Code(s): E87.6 - Hypokalemia (2) Status post total knee replacement, right Current Visit: Yes Status: Acute Comment: The patient has had the narcotic use in the past and that they were trying to stay away from this and we will do IV Tylenol every 8 and when necessary Toradol 15 mg there could be a high risk of bleeding but patient would like to be pain-free and will like to try this she knows that we will stop her narcotic discussed this with her is well and nursing Code(s): Z96.651 - Presence of right artificial knee joint (3) Hypothyroidism Current Visit: Yes Status: Acute Comment: Stable Code(s): E03.9 - Hypothyroidism, unspecified (4) Hypertension Current Visit: Yes Status: Acute Comment: Stable Code(s): I10 - Essential (primary) hypertension (5) Postoperative anemia due to acute blood loss Current Visit: Yes Status: Acute Comment: Hemoglobin today 7.7 up from 7.4 hopefully will be added in the right direction tomorrow as well Code(s): D62 - Acute posthemorrhagic anemia (6) Bipolar disorder Current Visit: Yes Status: Acute Comment: Continue current meds stable Code(s): F31.9 - Bipolar disorder, unspecified (7) DVT prophylaxis Current Visit: Yes Status: Acute
--- NOTE | 2017-06-14 12:50 | DCSUMMARY ---
Hospitalization Summary Hospital Course: Final Discharge Diagnosis: Current Visit Problems Problem Status Onset Code Status post total knee replacement, right Acute Z96.651 Pain Acute R52 Hypothyroidism Acute E03.9 Hypertension Acute I10 Postoperative anemia due to acute blood loss Acute D62 Bipolar disorder Acute F31.9 DVT prophylaxis Acute Hypokalemia Acute E87.6 Diagnostic Data, Laboratory Data, and Procedures of Signifigance: Laboratory Results 06/14/17 Range/Units 04:40 WBC 5.82 (4.8-10.8) 10^3/uL RBC 2.70 L (4.20-5.40) 10^6/uL Hgb 7.7 L (12.0-16.0) g/dL Hct 25.1 L (37.0-47.0) % MCV 93.0 (81-99) FL MCH 28.5 (27-31) PG MCHC 30.7 L (33-37) g/dL RDW Std Deviation 45.8 (39-50) fL RDW Coeff of Tommie 14.4 (11.5-14.5) % Plt Count 392 H (140-350) 10*3/uL MPV 8.8 (7.4-12.2) FL Immature Gran % (Auto) 1.5 (0-5) % Neut % (Auto) 69.1 (50-80) % Lymph % (Auto) 15.5 (10-50) % Summit % (Auto) 11.7 (5-15) % Eos % (Auto) 1.9 (0-8) % Baso % (Auto) 0.3 (0-1) % Immature Gran # (Auto) 0.09 10*3/UL Neut # (Auto) 4.02 10*3/UL Lymph # (Auto) 0.90 10*3/uL Summit # (Auto) 0.68 (0.3-0.8) 10*3/UL Eos # (Auto) 0.11 10*3/UL Baso # (Auto) 0.02 10*3/UL WBC Morphology Comment Normal morphology (NORM) Plt Morphology Comment Normal morphology (NORM) RBC Morph Comment Normal morphology (NORM) History and Physical pertinent to Admission: Past Medical History Medical History: Bipolar disorder, long history of low WBCs she had a bone marrow on many years ago and 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 Das also called the hematology in [place] yesterday and recommended to go ahead with the surgery of course there is a higher chance of infection, hypothyroidism Surgical History: Bone marrow many years ago as per Dr. Boyle her Tobacco Use: Never Smoker In the Past 12 Months, Have Used or Abuse Any of the Following Substance: None Course of Hospitalization: Is a very nice 67-year-old female hospitalist service was consult did to follow along with orthopedic surgeon for pain control she underwent knee replacement she has been doing well postop her pain is been well managed and the she has been receiving lately and narcotics every 6 hours the goal is to try to get away from narcotics with this patient since she has used them in the past for a long time. Today and see my previous note we will be trying IV Tylenol and when necessary Toradol at 15 mg to see if we can control her pain without narcotics also her On the date of discharge, the patient was examined: Gen.: No acute distress, alert, nontoxic Heart: Regular rate and rhythm, no murmurs, clicks, gallops, or rubs Lungs: Clear to auscultation bilaterally, breathing is nonlabored Abdomen/GI: Normal tones on auscultation, soft, nontender, nondistended Musculoskeletal/extremities: No clubbing, cyanosis, or edema Vitals reviewed and are listed below Vital Signs (24 hrs) Temp Pulse Resp BP Pulse Ox 06/14/17 11:15 97.2 F 84 17 143/77 95 06/14/17 07:14 98.8 F 99 17 128/69 95 06/14/17 04:54 98.2 F 92 20 139/65 92 06/14/17 00:09 98.2 F 83 21 132/63 93 06/13/17 20:24 98.8 F 98 29 H 157/71 98 06/13/17 17:00 98.2 F 85 16 142/72 92 Assessment and Plan: 1. As per discharge assessments above 2. Disposition: Swing bed 3. Condition on discharge, stable and improved. 4. Diet: regular diet 5. Activities: resume normal activities 6. Follow-Up: 1. PCP 2. 7. Medications at the Time of Discharge: Home Medications 3 Medication Instructions Recorded Confirmed Type lurasidone 60 mg tablet 60 mg PO QDAY 01/22/17 06/05/17 History budesonide-formoterol HFA 160 2 inh INH Q12H PRN g 05/07/17 06/05/17 History mcg-4.5 mcg/actuation aerosol inhaler buprenorphine 15 mcg/hour weekly 1 patch TRANSDERM QWEEK 05/07/17 06/05/17 History transdermal patch divalproex ER 250 mg 250 mg PO BID tab 05/07/17 06/05/17 History tablet,extended release 24 hr duloxetine 60 mg capsule,delayed 60 mg PO QDAY cap 05/07/17 06/05/17 History release liothyronine 50 mcg tablet 50 mcg PO ONCE #90 tab 05/07/17 06/05/17 Rx lithium carbonate 300 mg capsule 600 mg PO QDAY cap 05/07/17 06/05/17 History lorazepam 0.5 mg tablet 0.5 mg PO TID PRN tab 05/07/17 06/05/17 History losartan 50 mg tablet 50 mg PO QDAY 05/07/17 06/05/17 History pantoprazole 40 mg tablet,delayed 40 mg PO BID #180 tab 05/07/17 06/05/17 Rx release zolpidem 10 mg tablet 10 mg PO QHS 05/07/17 06/05/17 History celecoxib 100 mg capsule 100 mg PO BID #180 cap 05/16/17 06/05/17 Rx apremilast 30 mg tablet 30 mg PO QHS tab 06/04/17 06/05/17 History 8. Time, care, counseling and coordination of care for this discharge is greater than 30 minutes. Exam - Vitals Vital Signs: Vital Signs Temperature 97.2 F Temperature Source Temporal Artery Scan Pulse Rate [Apical] 78 Pulse Rate [Bilateral Dorsalis 93 Pedis] Pulse Rate [Pulse Oximeter] 84 Pulse Rate 98 Respiratory Rate 17 Blood Pressure [Left Arm] 143/77 Blood Pressure [Right Arm] 125/69 Blood Pressure 95/65 Pulse Ox 95 Oxygen Flow Rate 1 Oxygen Delivery Method Room Air Height 5 ft 10 in Weight 218 lb 8 oz Patient Problems - Patient Problem List (1) Hypokalemia Current Visit: Yes Status: Acute Code(s): E87.6 - Hypokalemia Category: Medical (2) Status post total knee replacement, right Current Visit: Yes Status: Acute Code(s): Z96.651 - Presence of right artificial knee joint Category: Surgical (3) Hypothyroidism Current Visit: Yes Status: Acute Code(s): E03.9 - Hypothyroidism, unspecified Category: Medical (4) Hypertension Current Visit: Yes Status: Acute Code(s): I10 - Essential (primary) hypertension Category: Medical (5) Postoperative anemia due to acute blood loss Current Visit: Yes Status: Acute Code(s): D62 - Acute posthemorrhagic anemia Category: Medical (6) Bipolar disorder Current Visit: Yes Status: Acute Code(s): F31.9 - Bipolar disorder, unspecified Category: Medical (7) DVT prophylaxis Current Visit: Yes Status: Acute Category: Medical
[2017-06-14] MEDS ORDERED: Acetaminophen 1000mg Inj 1,000 MG/100 ML VIAL IV SCH (13:00)
[2017-06-14] MEDS ORDERED: LITHIUM CARBONATE 300 MG CAPSULE PO SCH (21:00)
== END 2017-06-14 14:01 | disposition swing bed (61) | DRG 470 ==
LOC: OPS 06:03 → MED/SURG 12:38
PROVIDERS: ADMIT Orthopaedic Surgery; ATTEND Orthopaedic Surgery